=== PATIENT | female | born 1990 | race African-American/Black ===

== ENCOUNTER 2017-10-07 12:39 | Emergency (ER) | payer SELFPAY ==
[2017-10-07 13:07] LABS: Urine Blood 3+ (NEG); Urine Glucose NEGATIVE (NEG); Urine Protein 1+ (NEG); Urine Specific Gravity 1.025 (1.005-1.030)
--- NOTE | 2017-10-07 13:37 | ER ---
Nurse's Notes [facility] Name: Abby Arenas Age: 27 yrs Sex: Female : 1990 Arrival Date: 10/07/2017 Time: 12:42 Bed 19 Private MD: Diagnosis: Menstrual cycle;Abdominal and pelvic pain-cramping Presentation: 10/07 12:45 Presenting complaint: Patient states: I started my period yesterday and im bleeding la1 more than normal and the pain is worse. Pt states LMP 2 months ago but she is irr. has not taken test. Transition of care: patient was not received from another setting of care. Onset of symptoms was October 07, 2017. Care prior to arrival: None. 12:45 Method Of Arrival: Ambulatory la1 12:45 Acuity: RALF 4 la1 PRIVATE ADVISOR: 13:35 LMP 10/07/2017 em Historical: - Allergies: 12:45 PENICILLINS; la1 - PMHx: 12:45 None; la1 - Immunization history:: Adult Immunizations up to date. - Social history:: Smoking status: Patient uses tobacco products, smokes one-half pack cigarettes per day. Screenin:35 Abuse screen: Denies threats or abuse. Nutritional screening: No deficits noted. em Tuberculosis screening: No symptoms or risk factors identified. Fall Risk None identified. Assessment: 13:08 General: Appears in no apparent distress. comfortable, Behavior is calm, cooperative. em Pain: Complains of pain in suprapubic area Pain radiates to suprapubic area, right lower quadrant and left lower quadrant Pain currently is 7 out of 10 on a pain scale. Quality of pain is described as sharp, Pain began 1 day ago. Neuro: Level of Consciousness is awake, alert, obeys commands, Oriented to person, place, time, situation. Cardiovascular: Capillary refill < 3 seconds Patient's skin is warm and dry. Respiratory: Airway is patent Respiratory effort is even, unlabored, Respiratory pattern is regular, symmetrical. GI: Abdomen is round non-distended, Bowel sounds present X 4 quads. Abd is soft X 4 quads Abdomen is tender to palpation in suprapubic area, right lower quadrant and left lower quadrant. : Denies burning with urination. EENT: No signs and/or symptoms were reported regarding the EENT system. Derm: Skin is intact, Skin is pink, warm \T\ dry. Musculoskeletal: Range of motion: intact in all extremities. 13:25 Reassessment: Patient appears in no apparent distress at this time. I agree with above iw assessment by Maciel Newby LVN. Vital Signs: 12:45 BP 127 / 83; Pulse 74; Resp 16; Temp 98.3; Pulse Ox 100% on R/A; Weight 81.65 kg; la1 Height 5 ft. 5 in. (165.10 cm); 13:34 BP 118 / 76; Pulse 81; Resp 18; Pulse Ox 99% on R/A; Pain 6/10; em 12:45 Body Mass Index 29.95 (81.65 kg, 165.10 cm) la1 ED Course: 12:42 Patient arrived in ED. mr 12:43 Nadiya Flores FNP-C is PHCP. kb 12:43 Jim Arroyo MD is Attending Physician. kb 12:45 Triage completed. la1 12:46 Arm band placed on right wrist. la1 12:47 Maciel Newby LVN is Primary Nurse. em 13:35 Patient has correct armband on for positive identification. Bed in low position. Call em light in reach. Side rails up X2. Adult w/ patient. 13:35 No provider procedures requiring assistance completed. em 13:36 US Transvaginal Study (Probe) In Process Unspecified. EDMS 13:55 Patient did not have IV access during this emergency room visit. em Administered Medications: 13:41 Drug: Ibuprofen 800 mg Route: PO; em 13:54 Follow up: Response: No adverse reaction; Pain is decreased em Outcome: 13:37 Discharge ordered by MD. kb 13:55 Discharged to home ambulatory. em 13:55 Condition: good 13:55 Discharge instructions given to patient, Instructed on discharge instructions, follow up and referral plans. Demonstrated understanding of instructions, follow-up care. 13:56 Patient left the ED. em Signatures: Dispatcher [employer] EDMO Nadiya Flores FNP-C FNP-Ckb Rivera, Maria mr Newby [address] LVN em Charisse Rollins RN RN iw Carlos Franco RN RN la1
--- NOTE | 2017-10-07 13:37 | EDPHYS ---
Physician Documentation [facility] Name: Abby Arenas Age: 27 yrs Sex: Female : 1990 Arrival Date: 10/07/2017 Time: 12:42 Bed 19 Private MD: ED Physician Jim Arroyo HPI: 10/07 13:09 This 27 yrs old Black Female presents to ER via Ambulatory with complaints of Abdominal kb Cramping, Heavy menstration. 13:09 The patient has not recently seen a physician. kb 13:14 The patient presents with vaginal bleeding that is moderate, with clots. Onset: The kb symptoms/episode began/occurred yesterday. Modifying factors: The symptoms are alleviated by nothing, the symptoms are aggravated by nothing. Associated signs and symptoms: Pertinent positives: cramping, vaginal bleeding, Pertinent negatives: constipation, diarrhea, dyspareunia, dysuria, fever, hematuria, nausea, urinary frequency, vaginal discharge, vomiting. Severity of symptoms: At their worst the symptoms were mild, in the emergency department the symptoms are unchanged. The patient has not experienced similar symptoms in the past. RELIEF MASTER: 13:35 LMP 10/07/2017 em Historical: - Allergies: 12:45 PENICILLINS; la1 - PMHx: 12:45 None; la1 - Immunization history:: Adult Immunizations up to date. - Social history:: Smoking status: Patient uses tobacco products, smokes one-half pack cigarettes per day. ROS: 13:07 Constitutional: Negative for fever, chills, and weight loss, Cardiovascular: Negative kb for chest pain, palpitations, and edema, Respiratory: Negative for shortness of breath, cough, wheezing, and pleuritic chest pain, Back: Negative for injury and pain, MS/Extremity: Negative for injury and deformity, Skin: Negative for injury, rash, and discoloration, Neuro: Negative for headache, weakness, numbness, tingling, and seizure. 13:07 Abdomen/GI: Positive for abdominal cramps. 13:07 : Positive for vaginal bleeding. Exam: 13:07 Constitutional: This is a well developed, well nourished patient who is awake, alert, kb and in no acute distress. Head/Face: Normocephalic, atraumatic. Chest/axilla: Normal chest wall appearance and motion. Nontender with no deformity. No lesions are appreciated. Cardiovascular: Regular rate and rhythm with a normal S1 and S2. No gallops, murmurs, or rubs. Normal PMI, no JVD. No pulse deficits. Respiratory: Lungs have equal breath sounds bilaterally, clear to auscultation and percussion. No rales, rhonchi or wheezes noted. No increased work of breathing, no retractions or nasal flaring. Back: No spinal tenderness. No costovertebral tenderness. Full range of motion. Skin: Warm, dry with normal turgor. Normal color with no rashes, no lesions, and no evidence of cellulitis. MS/ Extremity: Pulses equal, no cyanosis. Neurovascular intact. Full, normal range of motion. Neuro: Awake and alert, GCS 15, oriented to person, place, time, and situation. Cranial nerves II-XII grossly intact. Motor strength 5/5 in all extremities. Sensory grossly intact. Cerebellar exam normal. Normal gait. 13:07 Abdomen/GI: Inspection: abdomen appears normal, Bowel sounds: normal, in all quadrants, Palpation: soft, in all quadrants, mild abdominal tenderness, in all quadrants. Vital Signs: 12:45 BP 127 / 83; Pulse 74; Resp 16; Temp 98.3; Pulse Ox 100% on R/A; Weight 81.65 kg; la1 Height 5 ft. 5 in. (165.10 cm); 13:34 BP 118 / 76; Pulse 81; Resp 18; Pulse Ox 99% on R/A; Pain 6/10; em 12:45 Body Mass Index 29.95 (81.65 kg, 165.10 cm) la1 MDM: 12:47 Patient medically screened. kb 13:07 Data reviewed: vital signs, nurses notes. Data interpreted: Pulse oximetry: on room air kb is 100 %. Interpretation: normal. 13:36 Counseling: I had a detailed discussion with the patient and/or guardian regarding: the kb historical points, exam findings, and any diagnostic results supporting the discharge/admit diagnosis, lab results, radiology results, the need for outpatient follow up, an OB/Gyne specialist, to return to the emergency department if symptoms worsen or persist or if there are any questions or concerns that arise at home. 10/07 13:03 Order name: Urine Dipstick--Ancillary (enter results); Complete Time: 13:09 ms 10/07 13:03 Order name: Urine --Ancillary (enter results); Complete Time: 13:09 ms 10/07 12:56 Order name: Urine Dipstick-Ancillary (obtain specimen); Complete Time: 13:02 kb 10/07 12:56 Order name: Urine Test (obtain specimen); Complete Time: 13:02 kb 10/07 13:06 Order name: US Transvaginal Study (Probe); Complete Time: 15:28 kb Administered Medications: 13:41 Drug: Ibuprofen 800 mg Route: PO; em 13:54 Follow up: Response: No adverse reaction; Pain is decreased em Disposition: 10/07/17 13:37 Discharged to Home. Impression: Menstrual cycle, Abdominal and pelvic pain - cramping. - Condition is Stable. - Discharge Instructions: Abnormal Uterine Bleeding, Undf-uc-Arth. - Medication Reconciliation Form, Thank You Letter, Antibiotic Education, Prescription Opioid Use, Work release form form. - Follow up: Private Physician; When: 2 - 3 days; Reason: Recheck today's complaints, Continuance of care, Re-evaluation by your physician. Follow up: Emergency Department; When: As needed; Reason: Worsening of condition. Addendum: 10/09/2017 07:24 Co-signature as Attending Physician, Jim Arroyo MD. g s Signatures: Dispatcher [employer] Nadiya Lomeli, LABORER TANBARK-C LABORER TANBARK-Maciel Porter, AIRCRAFT RESTORER AIRCRAFT RESTORER Carlos Shine, RN RN laurie1 Jim Arroyo MD MD
[2017-10-07] MEDS ORDERED: IBUPROFEN 400 MG TAB ONE (13:41)
--- NOTE | 2017-10-07 13:51 | RAD REPORT ---
EXAM DESCRIPTION: US - Transvaginal Study Probe - 10/07/2017 1:36 pm CLINICAL HISTORY: Pelvic pain. COMPARISON: None. FINDINGS: The uterus is normal in size, shape and echotexture. The uterus measures 6.5 x 4.6 x 3.5 c m. The endometrial stripe measures 6 mm, normal. Both ovaries are normal in size, shape and echotexture. The right ovary measures 4.2 x 2.1 x 2.0 cm. The left ovary measures 3.6 x 2.6 x 1.9 cm. No ovarian or parovarian lesions. No adnexal masses. Normal Doppler blood flow was demonstrated to both ovaries. IMPRESSION: Unremarkable study.
[2017-10-07 14:01] VITALS: TEMP 98.3
[2017-10-07 14:02] VITALS: BP 118/76; O2SAT 99
== END 2017-10-07 13:56 | disposition home or self-care (01) ==
LOC: ER 12:39
DX: N92.6 Irregular menstruation, unspecified (principal); F17.210 Nicotine dependence, cigarettes, uncomplicated; Z88.0 Allergy status to penicillin
CPT/HCPCS: 76830; 81003; 81025; 99283

== ENCOUNTER 2017-12-22 13:45 | Emergency (ER) | payer SELFPAY ==
[2017-12-22 19:37] LABS: Urine Bacteria LOADED /HPF (<20)
[2017-12-22 19:38] LABS: Urine Culture Reflex Order REFLEXED; Urine RBC <5 /HPF (NONE SEEN)
--- NOTE | 2017-12-22 20:38 | ER ---
Nurse's Notes [facility] Name: Abby Arenas Age: 27 yrs Sex: Female : 1990 Arrival Date: 12/22/2017 Time: 13:46 Bed External Waiting Private MD: Diagnosis: Urinary tract infection, site not specified Presentation: 12/22 14:14 Presenting complaint: Patient states: pelvic pain, burning with urination, urinary aa5 frequency x 2-3 weeks ago. Transition of care: patient was not received from another setting of care. Onset of symptoms was November 2017. Risk Assessment: Do you want to hurt yourself or someone else? Patient reports no desire to harm self or others. Initial Sepsis Screen: Does the patient meet any 2 criteria? No. Patient's initial sepsis screen is negative. Does the patient have a suspected source of infection? No. Patient's initial sepsis screen is negative. Care prior to arrival: None. 14:14 Method Of Arrival: Ambulatory aa5 14:14 Acuity: RALF 3 aa5 ASSISTANT DEAN: 19:20 LMP 12/18/2017 bb Historical: - Allergies: 14:15 PENICILLINS; aa5 - PMHx: 14:15 None; aa5 - PSHx: 14:15 None; aa5 - Immunization history:: Adult Immunizations up to date. - Social history:: Smoking status: Patient uses tobacco products, smokes one-half pack cigarettes per day. - Ebola Screening: : No symptoms or risks identified at this time. Screenin:15 Abuse screen: Denies threats or abuse. Nutritional screening: No deficits noted. bb Tuberculosis screening: No symptoms or risk factors identified. Fall Risk None identified. Assessment: 19:15 General: Appears in no apparent distress. Behavior is calm, cooperative. Pain: bb Complains of pain in pelvis. Neuro: Level of Consciousness is awake, alert, obeys commands, Oriented to person, place, time, situation. Cardiovascular: No deficits noted. Respiratory: Respiratory effort is even, unlabored. GI: No signs and/or symptoms were reported involving the gastrointestinal system. : Reports burning with urination. Derm: Skin is pink, warm \T\ dry. Musculoskeletal: Circulation, motion, and sensation intact. 21:10 Reassessment: No changes from previously documented assessment. Patient and/or family bb updated on plan of care and expected duration. Pain level reassessed. pt verbalized understanding of and agrees to plan of care discharge instructions given pt ambulated with steady gait to exit. Vital Signs: 14:15 BP 112 / 71; Pulse 73; Resp 18 S; Temp 97.9(TE); Pulse Ox 99% on R/A; Weight 72.57 kg aa5 (R); Height 5 ft. 5 in. (165.10 cm) (R); Pain 10/10; 19:41 BP 105 / 65; Pulse 68; Resp 16; Temp 98.3(O); Pulse Ox 100% on R/A; mt 21:11 BP 99 / 74; Pulse 61; Resp 16 S; Temp 96.9(O); Pulse Ox 100% on R/A; bb 14:15 Body Mass Index 26.63 (72.57 kg, 165.10 cm) aa5 ED Course: 13:46 Patient arrived in ED. sb2 14:15 Triage completed. aa5 14:15 Arm band placed on. aa5 18:53 Jp Bustos NP is PHCP. pm1 18:53 Matteo Cruz MD is Attending Physician. pm1 19:15 Patient has correct armband on for positive identification. Call light in reach. bb 20:58 Elisa Ruiz, NILTON is Primary Nurse. bb 21:12 No provider procedures requiring assistance completed. Patient did not have IV access bb during this emergency room visit. Administered Medications: No medications were administered Outcome: 20:37 Discharge ordered by MD. pm1 21:12 Discharged to home ambulatory. bb 21:12 Condition: stable 21:12 Discharge instructions given to patient, Instructed on discharge instructions, follow up and referral plans. medication usage, Demonstrated understanding of instructions, follow-up care, medications, Prescriptions given X 1. 21:13 Patient left the ED. bb Addendum: 12/25/2017 07:54 Addendum: Culture Results: Positive urine culture. No further action required. Bacteria i w sensitive to prescribed antibiotic. Signatures: Elisa Ruiz, NILTON CALLAWAY bb Charisse Rollins RN RN iw Calderon, Audri, RN RN aa5 Jp Bustos NP HEDGE TRIMMER pm1 Atiya Quintero ga Angelina Hale sb2
--- NOTE | 2017-12-22 20:38 | EDPHYS ---
Physician Documentation [facility] Name: Abby Arenas Age: 27 yrs Sex: Female : 1990 Arrival Date: 12/22/2017 Time: 13:46 Bed External Waiting Private MD: ED Physician Matteo Cruz HPI: 12/22 20:00 This 27 yrs old Black Female presents to ER via Ambulatory with complaints of Urinary pm1 Problem. 20:00 The patient presents with urinary symptoms, dysuria. Onset: The symptoms/episode pm1 began/occurred 3 week(s) ago. Modifying factors: The symptoms are alleviated by nothing, the symptoms are aggravated by urinating. Associated signs and symptoms: Pertinent negatives: diarrhea, dysuria, fever, nausea, vaginal discharge, vomiting. Severity of symptoms: in the emergency department the symptoms are actually worse. The patient has experienced similar episodes in the past, multiple times. 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 - Social history:: Smoking status: Patient uses tobacco products, smokes one-half pack cigarettes per day. - Ebola Screening: : No symptoms or risks identified at this time. ROS: 20:00 Positive for urinary frequency, burning with urination. pm1 20:00 Constitutional: Negative for fever, chills, and weight loss, Eyes: Negative for injury, pain, redness, and discharge, Cardiovascular: Negative for chest pain, palpitations, and edema, Respiratory: Negative for shortness of breath, cough, wheezing, and pleuritic chest pain, Abdomen/GI: Negative for abdominal pain, nausea, vomiting, diarrhea, and constipation, Back: Negative for injury and pain, MS/Extremity: Negative for injury and deformity, Skin: Negative for injury, rash, and discoloration, Neuro: Negative for headache, weakness, numbness, tingling, and seizure. Exam: 20:00 Constitutional: This is a well developed, well nourished patient who is awake, alert, pm1 and in no acute distress. Head/Face: Normocephalic, atraumatic. Chest/axilla: Normal chest wall appearance and motion. Nontender with no deformity. No lesions are appreciated. Cardiovascular: Regular rate and rhythm with a normal S1 and S2. No gallops, murmurs, or rubs. Normal PMI, no JVD. No pulse deficits. Respiratory: Lungs have equal breath sounds bilaterally, clear to auscultation and percussion. No rales, rhonchi or wheezes noted. No increased work of breathing, no retractions or nasal flaring. Abdomen/GI: Soft, non-tender, with normal bowel sounds. No distension or tympany. No guarding or rebound. No evidence of tenderness throughout. Back: No spinal tenderness. No costovertebral tenderness. Full range of motion. Skin: Warm, dry with normal turgor. Normal color with no rashes, no lesions, and no evidence of cellulitis. MS/ Extremity: Pulses equal, no cyanosis. Neurovascular intact. Full, normal range of motion. Vital Signs: 14:15 BP 112 / 71; Pulse 73; Resp 18 S; Temp 97.9(TE); Pulse Ox 99% on R/A; Weight 72.57 kg aa5 (R); Height 5 ft. 5 in. (165.10 cm) (R); Pain 10/10; 19:41 BP 105 / 65; Pulse 68; Resp 16; Temp 98.3(O); Pulse Ox 100% on R/A; mt 21:11 BP 99 / 74; Pulse 61; Resp 16 S; Temp 96.9(O); Pulse Ox 100% on R/A; bb 14:15 Body Mass Index 26.63 (72.57 kg, 165.10 cm) aa5 MDM: 19:05 Patient medically screened. pm1 20:21 Data reviewed: vital signs. Data interpreted: Pulse oximetry: on room air is 100 %. pm1 Interpretation: normal. Counseling: I had a detailed discussion with the patient and/or guardian regarding: the historical points, exam findings, and any diagnostic results supporting the discharge/admit diagnosis. 12/22 18:55 Order name: Urine Microscopic Only; Complete Time: 20:18 pm1 12/22 19:39 Order name: Urine Culture [facility] 12/22 18:54 Order name: Urine Dipstick-Ancillary (obtain specimen); Complete Time: 18:56 pm1 12/22 18:54 Order name: Urine Test (obtain specimen); Complete Time: 18:56 pm1 12/22 20:08 Order name: Urine Dipstick--Ancillary (enter results) ms 12/22 20:08 Order name: Urine --Ancillary (enter results) ms Administered Medications: No medications were administered Disposition: 12/22/17 20:37 Discharged to Home. Impression: Urinary tract infection, site not specified. - Condition is Stable. - Discharge Instructions: Urinary Tract Infection. - Prescriptions for Macrobid 100 mg Oral Capsule - take 1 capsule by ORAL route every 12 hours for 10 days; 20 capsule. - Work release form, Medication Reconciliation Form, Thank You Letter, Antibiotic Education form. - Follow up: Emergency Department; When: As needed; Reason: Worsening of condition. Follow up: Private Physician; When: 2 - 3 days; Reason: Recheck today's complaints, Continuance of care, Re-evaluation by your physician. - Problem is new. - Symptoms have improved. Addendum: 12/26/2017 07:08 Co-signature as Attending Physician, Matteo Cruz MD I agree with the assessment and k dr plan of care. Signatures: Dispatcher [employer] EDMS Matteo Cruz MD MD kdr Elisa Ruiz RN RN bb Sue Garcia RN RN aa5 Jp Bustos NP FINANCE ADVISOR pm1 Corrections: (The following items were deleted from the chart) 12/22 21:13 20:37 12/22/2017 20:37 Discharged to Home. Impression: Urinary tract infection, site bb not specified. Condition is Stable. Forms are Medication Reconciliation Form, Thank You Letter, Antibiotic Education, Prescription Opioid Use. Follow up: Emergency Department; When: As needed; Reason: Worsening of condition. Follow up: Private Physician; When: 2 - 3 days; Reason: Recheck today's complaints, Continuance of care, Re-evaluation by your physician. Problem is new. Symptoms have improved. pm1
[2017-12-22 21:49] LABS: Urine Blood 1+ (NEG); Urine Glucose NEGATIVE (NEG); Urine Protein 2+ (NEG); Urine Specific Gravity >1.030 (1.005-1.030)
[2017-12-22 22:22] VITALS: O2SAT 100
[2017-12-22 22:23] VITALS: BP 99/74; TEMP 96.9
== END 2017-12-22 21:13 | disposition home or self-care (01) ==
LOC: ER 13:45
DX: N39.0 Urinary tract infection, site not specified (principal); F17.210 Nicotine dependence, cigarettes, uncomplicated; Z88.0 Allergy status to penicillin
CPT/HCPCS: 81003; 81015; 81025; 87077; 87086; 87088; 87186; 99282

== ENCOUNTER 2018-01-11 19:05 | Emergency (ER) | payer SELFPAY ==
[2018-01-11] MEDS ORDERED: NA CHLORIDE 0.9% 1,000 ML ONE (20:15)
[2018-01-11 20:19] LABS: Absolute Lymphocytes (CBC) 1.4 K/uL (0.7-4.9); Absolute Monocytes 0.6 K/uL (0.1-1.3); Basophils % 0.5 % (0-1.3); Eosinophils % 0.7 % (0-4.4); Hematocrit 40.4 % (36.0-45.0); Lymphocytes % 19.9 % (15.3-44.8); MCH 26.9 pg (27.0-35.0); MCV 80.2 fL (80-100); Monocytes % 8.6 % (3.3-12.3); RBC Red Blood Cell Count 5.04 M/uL (3.86-4.86)
[2018-01-11 20:37] LABS: Albumin 3.3 g/dL (3.4-5.0); Bilirubin Direct 0.1 mg/dL (0-0.2); Bilirubin Total 0.4 mg/dL (0.2-1.0); Potassium 3.6 mmol/L (3.5-5.1); Protein, Total 7.2 g/dL (6.4-8.2)
[2018-01-11 20:49] LABS: Urine Bacteria 20-50 /HPF (<20); Urine RBC LOADED /HPF (NONE SEEN)
[2018-01-11 20:50] LABS: Urine Amorphous Sediment 1+ /HPF (NONE SEEN); Urine Culture Reflex Order NOT NEEDED; Urine Mucus 1+ /HPF (NONE SEEN)
--- NOTE | 2018-01-11 21:14 | RAD REPORT ---
EXAM DESCRIPTION: CT - Abdomen Pelvis W Contrast - 01/11/2018 9:00 pm CLINICAL HISTORY: Abdominal pain, flank pain COMPARISON: CT study November 2014. TECHNIQUE: Biphasic, helical CT imaging of the abdomen and pelvis was performed following 100 ml non -ionic IV contrast. No oral contrast was given. All CT scans are performed using dose optimization technique as appropriate and may include automated exposure control or mA/KV adjustment according to patient size. FINDINGS: No suspicious findings in the lung bases. The liver, spleen, and pancreas show no suspicious findings. Gallbladder is contracted. No biliary tr ee dilatation. Gallstones can be occult on CT imaging. Symmetric renal function is seen with no hydronephrosis or suspicious renal mass. No pyelonephritis o r acute renal parenchymal process. No urinary bladder abnormality. Adrenal glands are normal. Uterus and ovaries are normal for age. No fallopian tube or adnexal abnormality. No dilated bowel loops or bowel wall thickening. Appendix is normal. No free air or pneumatosis. No f ocal inflammatory stranding. Trace free fluid in the cul-de-sac is within physiologic limits. No her ron, mass or bulky lymphadenopathy. No suspicious bony findings. IMPRESSION: Contrast enhanced CT abdomen and pelvis showing no significant or suspicious finding.
--- NOTE | 2018-01-11 21:51 | EDPHYS ---
Physician Documentation [facility] Name: Abby Arenas Age: 27 yrs Sex: Female : 1990 Arrival Date: 01/11/2018 Time: 19:10 Bed 26 Private MD: ED Physician Toy Martinez HPI: 01/11 22:00 This 27 yrs old Black Female presents to ER via Ambulatory with complaints of Back pm1 Pain, Fever. 22:00 The patient presents with pain that is acute, with no known mechanism of injury. The pm1 symptoms are located in the low back. Onset: The symptoms/episode began/occurred yesterday. Location: abdomen. Associated signs and symptoms: Pertinent positives: fever, Pertinent negatives: chest pain, dysuria, headache, numbness, tingling. The problem was sustained from unknown cause. Modifying factors: The patient symptoms are alleviated by nothing, the patient symptoms are aggravated by nothing. Severity of symptoms: in the emergency department the symptoms are unchanged. The patient has not experienced similar symptoms in the past. 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 - Social history:: Smoking status: Patient uses tobacco products, smokes one-half pack cigarettes per day, States that she quit 2 weeks ago. - Ebola Screening: : Patient denies travel to an Ebola-affected area in the 21 days before illness onset. ROS: 22:00 Constitutional: Negative for fever, chills, and weight loss, Eyes: Negative for injury, pm1 pain, redness, and discharge, ENT: Negative for injury, pain, and discharge, Neck: Negative for injury, pain, and swelling, Cardiovascular: Negative for chest pain, palpitations, and edema, Respiratory: Negative for shortness of breath, cough, wheezing, and pleuritic chest pain. 22:00 : Negative for injury, bleeding, discharge, and swelling, MS/Extremity: Negative for injury and deformity, Skin: Negative for injury, rash, and discoloration, Neuro: Negative for headache, weakness, numbness, tingling, and seizure. 22:00 Abdomen/GI: Positive for abdominal pain, Negative for nausea, vomiting, and diarrhea. 22:00 Back: Positive for flank pain, bilaterally. Exam: 22:00 Constitutional: This is a well developed, well nourished patient who is awake, alert, pm1 and in no acute distress. Head/Face: Normocephalic, atraumatic. Neck: Trachea midline, no thyromegaly or masses palpated, and no cervical lymphadenopathy. Supple, full range of motion without nuchal rigidity, or vertebral point tenderness. No Meningismus. Chest/axilla: Normal chest wall appearance and motion. Nontender with no deformity. No lesions are appreciated. Cardiovascular: Regular rate and rhythm with a normal S1 and S2. No gallops, murmurs, or rubs. Normal PMI, no JVD. No pulse deficits. Respiratory: Lungs have equal breath sounds bilaterally, clear to auscultation and percussion. No rales, rhonchi or wheezes noted. No increased work of breathing, no retractions or nasal flaring. Abdomen/GI: Soft, non-tender, with normal bowel sounds. No distension or tympany. No guarding or rebound. No evidence of tenderness throughout. Back: No spinal tenderness. No costovertebral tenderness. Full range of motion. Skin: Warm, dry with normal turgor. Normal color with no rashes, no lesions, and no evidence of cellulitis. MS/ Extremity: Pulses equal, no cyanosis. Neurovascular intact. Full, normal range of motion. 22:00 Neuro: Orientation: is normal, Mentation: is normal, Sensation: is normal, no obvious gross deficits, Gait: is steady, at a normal pace, without difficulty. Vital Signs: 19:16 BP 117 / 68; Pulse 86; Resp 18; Temp 97.8; Pulse Ox 98% on R/A; Weight 74.84 kg (R); aj1 Height 5 ft. 5 in. (165.10 cm) (R); Pain 8/10; 21:43 BP 115 / 72; Pulse 83; Resp 16; Pulse Ox 100% on R/A; mb3 19:16 Body Mass Index 27.46 (74.84 kg, 165.10 cm) aj1 MDM: 19:21 Patient medically screened. pm1 21:49 Data reviewed: vital signs. Data interpreted: Pulse oximetry: on room air is 100 %. pm1 Interpretation: normal. Counseling: I had a detailed discussion with the patient and/or guardian regarding: the historical points, exam findings, and any diagnostic results supporting the discharge/admit diagnosis, lab results, radiology results, the need for outpatient follow up, to return to the emergency department if symptoms worsen or persist or if there are any questions or concerns that arise at home. 01/11 19:44 Order name: Basic Metabolic Panel; Complete Time: 20:48 pm1 01/11 19:44 Order name: CBC with Diff; Complete Time: 20:48 pm1 01/11 19:44 Order name: Hepatic Function; Complete Time: 20:48 pm1 01/11 19:44 Order name: Lipase; Complete Time: 20:48 pm1 01/11 19:44 Order name: Urine Microscopic Only; Complete Time: 21:18 pm1 01/11 20:36 Order name: Urine Dipstick--Ancillary (enter results) eb 01/11 19:44 Order name: IV Saline Lock; Complete Time: 21:56 pm1 01/11 19:44 Order name: Labs collected and sent; Complete Time: 21:56 pm1 01/11 19:44 Order name: CT Abd/Pelvis - W/Contrast: IV contrast only; Complete Time: 21:18 pm1 01/11 21:19 Order name: Urine Culture pm1 01/11 19:44 Order name: Urine Dipstick-Ancillary (obtain specimen); Complete Time: 21:56 pm1 Administered Medications: 20:15 Drug: NS 0.9% 1000 ml Route: IV; Rate: 1000 ml; Site: left antecubital; mb3 22:15 Follow up: Response: No adverse reaction; IV Status: Completed infusion; IV Intake: mb3 1000ml 21:56 Drug: TORadol 30 mg Route: IVP; Site: left forearm; mb3 22:15 Follow up: Response: No adverse reaction mb3 Disposition: 22:27 Co-signature as Attending Physician, Toy Martinez MD. pkl Disposition: 01/11/18 21:50 Discharged to Home. Impression: Unspecified abdominal pain, Urinary tract infection, site not specified. - Condition is Stable. - Discharge Instructions: Abdominal Pain, Adult, Urinary Tract Infection. - Prescriptions for Bactrim DS 800- 160 mg Oral Tablet - take 1 tablet by ORAL route every 12 hours for 10 days; 20 tablet. - Medication Reconciliation Form, Thank You Letter, Antibiotic Education, Work release form form. - Follow up: Emergency Department; When: As needed; Reason: Worsening of condition. Follow up: Private Physician; When: 2 - 3 days; Reason: Recheck today's complaints, Continuance of care, Re-evaluation by your physician. - Problem is new. - Symptoms have improved. Signatures: Dispatcher [employer] EDCharlotte Tee RN RN aj1 Toy Martinez MD MD pkl Jp Bustos, KD FLOOR CARE TECHNICIAN pm1 John Taylor, RN RN mb3 Corrections: (The following items were deleted from the chart) 22:16 21:50 01/11/2018 21:50 Discharged to Home. Impression: Unspecified abdominal pain; mb3 Urinary tract infection, site not specified. Condition is Stable. Forms are Medication Reconciliation Form, Thank You Letter, Antibiotic Education, Prescription Opioid Use. Follow up: Emergency Department; When: As needed; Reason: Worsening of condition. Follow up: Private Physician; When: 2 - 3 days; Reason: Recheck today's complaints, Continuance of care, Re-evaluation by your physician. Problem is new. Symptoms have improved. pm1
--- NOTE | 2018-01-11 21:51 | ER ---
Nurse's Notes [facility] Name: Abby Arenas Age: 27 yrs Sex: Female : 1990 Arrival Date: 01/11/2018 Time: 19:10 Bed 26 Private MD: Diagnosis: Unspecified abdominal pain;Urinary tract infection, site not specified Presentation: 01/11 19:11 Presenting complaint: Patient states: "I'm in a lot of pain, it goes from my back into aj1 my stomach and then into my leg. It kept me up last night" Reports a fever last of 100.8, denies running fever today. Denies N/V/D. Denies dysuria, urinary frequency, urgency, discharge. Transition of care: patient was not received from another setting of care. Onset of symptoms was December 11, 2017. Risk Assessment: Do you want to hurt yourself or someone else? Patient reports no desire to harm self or others. Initial Sepsis Screen: Does the patient meet any 2 criteria? No. Patient's initial sepsis screen is negative. Does the patient have a suspected source of infection? No. Patient's initial sepsis screen is negative. Care prior to arrival: None. 19:11 Method Of Arrival: Ambulatory aj1 19:11 Acuity: RALF 3 aj1 Triage Assessment: 19:16 General: Appears in no apparent distress. comfortable, Behavior is calm, cooperative, aj1 appropriate for age. Pain: Complains of pain in low back area and umbilical area Pain does not radiate. Pain currently is 8 out of 10 on a pain scale. Quality of pain is described as "twisting" Pain began 1 day ago. Neuro: Level of Consciousness is awake, alert, obeys commands. Cardiovascular: Patient's skin is warm and dry. Respiratory: Airway is patent Respiratory effort is even, unlabored, Respiratory pattern is regular, symmetrical. GI: Abdomen is non-distended, Patient currently denies diarrhea, nausea, vomiting. : Denies burning with urination, discharge, urinary frequency, urgency. Derm: Skin is pink, warm \\T\\ dry. normal. Musculoskeletal: Circulation, motion, and sensation intact. Range of motion: intact in all extremities. 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 - Social history:: Smoking status: Patient uses tobacco products, smokes one-half pack cigarettes per day, States that she quit 2 weeks ago. - Ebola Screening: : Patient denies travel to an Ebola-affected area in the 21 days before illness onset. Screenin:19 Abuse screen: Denies threats or abuse. Nutritional screening: No deficits noted. mb3 Tuberculosis screening: No symptoms or risk factors identified. Fall Risk None identified. Assessment: 20:17 General: Appears in no apparent distress. comfortable, Behavior is calm, cooperative, mb3 appropriate for age. Pain: Complains of pain in left low back and right low back. Neuro: Level of Consciousness is awake, alert, obeys commands, Oriented to person, place, time, situation, Appropriate for age. Cardiovascular: No deficits noted. Respiratory: No deficits noted. Airway is patent Respiratory effort is even, unlabored, Respiratory pattern is regular, symmetrical. GI: No deficits noted. No signs and/or symptoms were reported involving the gastrointestinal system. Abdomen is flat, Bowel sounds present X 4 quads. Abd is soft and non tender. : Reports pain flank(s). Musculoskeletal: No deficits noted. No signs and/or symptoms reported regarding the musculoskeletal system. 21:47 Reassessment: Patient and/or family updated on plan of care and expected duration. Pain mb3 level reassessed. Patient is alert, oriented x 3, equal unlabored respirations, skin warm/dry/pink. Patient states symptoms have improved. Vital Signs: 19:16 BP 117 / 68; Pulse 86; Resp 18; Temp 97.8; Pulse Ox 98% on R/A; Weight 74.84 kg (R); aj1 Height 5 ft. 5 in. (165.10 cm) (R); Pain 8/10; 21:43 BP 115 / 72; Pulse 83; Resp 16; Pulse Ox 100% on R/A; mb3 19:16 Body Mass Index 27.46 (74.84 kg, 165.10 cm) aj1 ED Course: 19:10 Patient arrived in ED. es 19:16 Triage completed. aj1 19:16 Arm band placed on Patient placed in an exam room. aj1 19:19 Jp Bustos NP is PHCP. pm1 19:19 Toy Martinez MD is Attending Physician. pm1 19:20 John Taylor, RN is Primary Nurse. mb3 19:47 Radiology exam delayed due to lab results not completed at this time. test kc3 not completed at this time. 20:05 Missed attempt(s): 20 gauge Bleeding controlled, band aid applied, catheter tip intact. mb3 20:10 Inserted saline lock: 22 gauge in left antecubital area, using aseptic technique. Blood mb3 collected. 21:01 CT Abd/Pelvis - W/Contrast: IV contrast only In Process Unspecified. EDMS 21:56 Urine Culture Sent. mb3 22:16 Patient has correct armband on for positive identification. mb3 22:16 No provider procedures requiring assistance completed. IV discontinued, intact, mb3 bleeding controlled, No redness/swelling at site. Pressure dressing applied. Administered Medications: 20:15 Drug: NS 0.9% 1000 ml Route: IV; Rate: 1000 ml; Site: left antecubital; mb3 22:15 Follow up: Response: No adverse reaction; IV Status: Completed infusion; IV Intake: mb3 1000ml 21:56 Drug: TORadol 30 mg Route: IVP; Site: left forearm; mb3 22:15 Follow up: Response: No adverse reaction mb3 Intake: 22:15 IV: 1000ml; Total: 1000ml. mb3 Outcome: 21:50 Discharge ordered by MD. pm1 22:15 Discharged to home ambulatory. mb3 22:15 Condition: stable 22:15 Discharge instructions given to patient, Instructed on discharge instructions, follow up and referral plans. medication usage, Demonstrated understanding of instructions, follow-up care, medications, Prescriptions given X 1. 22:16 Patient left the ED. mb3 Signatures: Dispatcher [employer] EDCharlotte Tee RN RN aj1 Nancy Vazquez Patrick, NP DOCUMENT MANAGEMENT CONSULTANT pm1 Shaye Hickey kc3 John Taylor, RN RN mb3
[2018-01-11] MEDS ORDERED: KETOROLAC 30 MG/ML INJ ONE (21:55)
[2018-01-11 21:57] LABS: Urine Blood 3+ (NEG); Urine Glucose TRACE (NEG); Urine Protein 3+ (NEG)
[2018-01-11 22:20] VITALS: TEMP 97.8
[2018-01-11 22:21] VITALS: BP 115/72; O2SAT 100
== END 2018-01-11 22:16 | disposition home or self-care (01) ==
LOC: ER 19:05
DX: N39.0 Urinary tract infection, site not specified (principal); F17.210 Nicotine dependence, cigarettes, uncomplicated; Z88.0 Allergy status to penicillin
CPT/HCPCS: 36415; 74177; 80048; 80076; 81003; 81015; 83690; 85025; 96361; 96374; 99284; J7030; Q9967

== ENCOUNTER 2018-02-05 21:06 | Emergency (ER) | payer SELFPAY ==
--- NOTE | 2018-02-05 21:29 | EDPHYS ---
Physician Documentation [facility] Name: Abby Arenas Age: 27 yrs Sex: Female : 1990 Arrival Date: 02/05/2018 Time: 21:06 Bed 13 Private MD: ED Physician Td Vasques HPI: 02/05 21:24 This 27 yrs old Black Female presents to ER via Ambulatory with complaints of Pain With ps1 Urination. 21:24 pain with urination for 2 weeks. Additionally has suprapubic pain. History of UTI's in ps1 past that feel the same. usually takes Macrobid and has good resolution. No fevers. . 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 - Social history:: Smoking status: Patient/guardian denies using tobacco. - Ebola Screening: : No symptoms or risks identified at this time. ROS: 21:24 Constitutional: Negative for fever, chills, and weight loss, Eyes: Negative for injury, ps1 pain, redness, and discharge, Cardiovascular: Negative for chest pain, palpitations, and edema, Respiratory: Negative for shortness of breath, cough, wheezing, and pleuritic chest pain, Abdomen/GI: Negative for abdominal pain, nausea, vomiting, diarrhea, and constipation. 21:24 : Positive for urinary symptoms, urinary frequency, burning with urination, foul smelling urine. Exam: 21:24 Constitutional: This is a well developed, well nourished patient who is awake, alert, ps1 and in no acute distress. Head/Face: Normocephalic, atraumatic. Eyes: Pupils equal round and reactive to light, extra-ocular motions intact. Lids and lashes normal. Conjunctiva and sclera are non-icteric and not injected. Cardiovascular: Regular rate and rhythm. No gallops, murmurs, or rubs. Normal PMI, no JVD. No pulse deficits. Respiratory: Lungs have equal breath sounds bilaterally, clear to auscultation and percussion. No rales, rhonchi or wheezes noted. No increased work of breathing, no retractions or nasal flaring. Abdomen/GI: Soft, non-tender, with normal bowel sounds. No distension or tympany. No guarding or rebound. No evidence of tenderness throughout. MS/ Extremity: Pulses equal, no cyanosis. Neurovascular intact. Full, normal range of motion. Neuro: Awake and alert, GCS 15, oriented to person, place, time, and situation. Cranial nerves II-XII grossly intact. Sensory grossly intact. Vital Signs: 21:14 BP 111 / 69; Pulse 93; Resp 16; Temp 98.6; Pulse Ox 100% on R/A; Weight 81.65 kg; aa1 Height 5 ft. 5 in. (165.10 cm); Pain 10/10; 21:14 Body Mass Index 29.95 (81.65 kg, 165.10 cm) aa1 MDM: 21:24 Data reviewed: vital signs, nurses notes, lab test result(s). Counseling: I had a ps1 detailed discussion with the patient and/or guardian regarding: the historical points, exam findings, and any diagnostic results supporting the discharge/admit diagnosis, lab results, the need for outpatient follow up. ED course: UA positive. Culture sent. Home with pyridium and macrobid. Preg negative. . 21:28 Patient medically screened. [facility] 02/05 21:21 Order name: Urine Culture [facility] 02/05 21:28 Order name: Urine Dipstick--Ancillary (enter results) rg2 02/05 21:21 Order name: Urine Dipstick-Ancillary (obtain specimen); Complete Time: 21:29 [facility] 02/05 21:28 Order name: Urine --Ancillary (enter results) rg2 Administered Medications: No medications were administered Disposition: 02/05/18 21:28 Discharged to Home. Impression: Acute cystitis. - Condition is Stable. - Discharge Instructions: Urinary Tract Infection, Adult. - Prescriptions for Pyridium 200 mg Oral Tablet - take 1 tablet by ORAL route every 8 hours for 3 days; 9 tablet. Macrobid 100 mg Oral Capsule - take 1 capsule by ORAL route every 12 hours for 7 days; 14 capsule. - Medication Reconciliation Form, Thank You Letter, Antibiotic Education, Prescription Opioid Use form. - Follow up: Private Physician; When: As needed; Reason: Recheck today's complaints, Continuance of care, Re-evaluation by your physician. Follow up: Emergency Department; When: As needed; Reason: Fever > 102 F, Worsening of condition. - Problem is new. - Symptoms are unchanged. Signatures: Dispatcher [employer] EDEdilma Anne, RN RN Ana Escoto RN Td Wade MD MD ps1 Corrections: (The following items were deleted from the chart) 21:32 21:28 02/05/2018 21:28 Discharged to Home. Impression: Acute cystitis. Condition is aj Stable. Forms are Medication Reconciliation Form, Thank You Letter, Antibiotic Education, Prescription Opioid Use. Follow up: Private Physician; When: As needed; Reason: Recheck today's complaints, Continuance of care, Re-evaluation by your physician. Follow up: Emergency Department; When: As needed; Reason: Fever > 102 F, Worsening of condition. Problem is new. Symptoms are unchanged. ps1
--- NOTE | 2018-02-05 21:29 | ER ---
Nurse's Notes [facility] Name: Abby Arenas Age: 27 yrs Sex: Female : 1990 Arrival Date: 02/05/2018 Time: 21:06 Bed 13 Private MD: Diagnosis: Acute cystitis Presentation: 02/05 21:13 Presenting complaint: Patient states: pain with urination x 1 week. Transition of care: aa1 patient was not received from another setting of care. Onset of symptoms was January 22, 2018. Risk Assessment: Do you want to hurt yourself or someone else? Patient reports no desire to harm self or others. Initial Sepsis Screen: Does the patient meet any 2 criteria? No. Patient's initial sepsis screen is negative. Does the patient have a suspected source of infection? Yes: Dysuria/Frequency/Urgency/UTI. Care prior to arrival: None. 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 - Social history:: Smoking status: Patient/guardian denies using tobacco. - Ebola Screening: : No symptoms or risks identified at this time. Screenin:26 Abuse screen: Denies threats or abuse. Denies injuries from another. Nutritional aj screening: No deficits noted. Tuberculosis screening: No symptoms or risk factors identified. Fall Risk None identified. Assessment: 21:26 General: Appears in no apparent distress. comfortable, Behavior is calm, cooperative. aj Pain: Denies pain. Neuro: Level of Consciousness is awake, alert, obeys commands, Oriented to person, place, time, situation, Appropriate for age. Respiratory: Airway is patent Respiratory effort is even, unlabored, Respiratory pattern is regular, symmetrical. : Reports burning with urination. Derm: Skin is intact, is healthy with good turgor, Skin is pink, warm \T\ dry. normal. Vital Signs: 21:14 BP 111 / 69; Pulse 93; Resp 16; Temp 98.6; Pulse Ox 100% on R/A; Weight 81.65 kg; aa1 Height 5 ft. 5 in. (165.10 cm); Pain 10/10; 21:14 Body Mass Index 29.95 (81.65 kg, 165.10 cm) aa1 ED Course: 21:06 Patient arrived in ED. ds1 21:14 Triage completed. aa1 21:14 Arm band placed on right wrist. Patient placed in an exam room, on a stretcher. aa1 21:19 Td Vasques MD is Attending Physician. ps1 21:19 Ana Crapenter RN is Primary Nurse. aj 21:26 Patient has correct armband on for positive identification. aj 21:26 No provider procedures requiring assistance completed. Urine collected: clean catch aj specimen, cloudy. Patient did not have IV access during this emergency room visit. Administered Medications: No medications were administered Outcome: 21:26 Discharged to home ambulatory. aj 21:26 Condition: good 21:26 Discharge instructions given to patient, Instructed on discharge instructions, follow up and referral plans. medication usage, Demonstrated understanding of instructions, follow-up care, medications, Prescriptions given X 1. 21:28 Discharge ordered by . ps1 21:32 Patient left the ED. aj Addendum: 02/08/2018 07:38 Addendum: Culture Results: Positive urine culture. No further action required. Bacteria s s sensitive to prescribed antibiotic. Signatures: Edilma Baker, NILTON CALLAWAY aa Ana Carpenter RN RN aj Sanford, Demi ds1 Alejandra Whipple RN RN Td Vasuqes MD MD ps1
[2018-02-05 21:41] LABS: Urine Blood TRACE (NEG); Urine Glucose NEGATIVE (NEG); Urine Protein 2+ (NEG); Urine Specific Gravity 1.025 (1.005-1.030); Urine pH 6.5 (5.0-7.0)
[2018-02-05 21:55] VITALS: BP 111/69; TEMP 98.6; O2SAT 100
== END 2018-02-05 21:32 | disposition home or self-care (01) ==
LOC: ER 21:06
DX: N30.00 Acute cystitis without hematuria (principal); Z88.0 Allergy status to penicillin
CPT/HCPCS: 81003; 81025; 87077; 87086; 87088; 87186; 99283

== ENCOUNTER 2019-01-18 20:03 | Emergency (ER) | payer SELFPAY ==
--- OUTSIDE RECORDS SUMMARY | 2019-01-18 20:05 | XMS REPORT ---
:1990 [facility] Address [address] [place] [address] Care Team Providers Name Role Phone Unavailable Unavailable Unavailable Payers Payer Name Policy Type Policy Number Effective Date Expiration Date Problems This patient has no known problems. Allergies, Adverse Reactions, Alerts Allergy Allergy Status Severity Reaction(s) Onset Inactive Treating Comments Name Type Date Date Clinician No Known DA Active U 2018-07 Allergies -02 00:00:0 0 Medications This patient has no known medications.
[2019-01-18 20:48] LABS: Urine Blood NEGATIVE (NEG); Urine Glucose NEGATIVE (NEG); Urine Protein 1+ (NEG); Urine pH 6.5 (5.0-7.0)
[2019-01-18 21:00] LABS: Urine Bacteria 20-50 /HPF (<20); Urine Culture Reflex Order REFLEXED; Urine RBC <5 /HPF (NONE SEEN)
--- NOTE | 2019-01-18 21:03 | EDPHYS ---
Physician Documentation [facility] Name: Abby Arenas Age: 28 yrs Sex: Female : 1990 Arrival Date: 01/18/2019 Time: 20:07 Bed 12 Private MD: ED Physician Jim Arroyo HPI: 01/18 20:42 This 28 yrs old Black Female presents to ER via Ambulatory with complaints of Pain With snw Urination, Abdominal Pain. 20:42 Onset: The symptoms/episode began/occurred gradually, 3 week(s) ago, and became snw persistent. Associated signs and symptoms: The patient has no apparent associated signs or symptoms. The patient has experienced a previous episode. The patient has not recently seen a physician. Historical: - Allergies: 20:11 PENICILLINS; la1 - PMHx: 20:11 None; la1 - Immunization history:: Adult Immunizations up to date. - Social history:: Smoking status: Patient/guardian denies using tobacco. - Ebola Screening: : No symptoms or risks identified at this time. ROS: 20:42 Constitutional: Negative for fever, chills, and weight loss, Eyes: Negative for injury, snw pain, redness, and discharge, ENT: Negative for injury, pain, and discharge, Neck: Negative for injury, pain, and swelling, Cardiovascular: Negative for chest pain, palpitations, and edema, Respiratory: Negative for shortness of breath, cough, wheezing, and pleuritic chest pain, Back: Negative for injury and pain, MS/Extremity: Negative for injury and deformity, Skin: Negative for injury, rash, and discoloration, Neuro: Negative for headache, weakness, numbness, tingling, and seizure. 20:42 Abdomen/GI: Positive for abdominal pain, of the left lower quadrant. 20:42 : Positive for urinary symptoms, urinary frequency, small amounts, burning with urination. Exam: 20:40 Constitutional: This is a well developed, well nourished patient who is awake, alert, snw and in no acute distress. Head/Face: Normocephalic, atraumatic. Eyes: Pupils equal round and reactive to light, extra-ocular motions intact. Lids and lashes normal. Conjunctiva and sclera are non-icteric and not injected. Cornea within normal limits. Periorbital areas with no swelling, redness, or edema. ENT: Nares patent. No nasal discharge, no septal abnormalities noted. Tympanic membranes are normal and external auditory canals are clear. Oropharynx with no redness, swelling, or masses, exudates, or evidence of obstruction, uvula midline. Mucous membranes moist. Neck: Trachea midline, no thyromegaly or masses palpated, and no cervical lymphadenopathy. Supple, full range of motion without nuchal rigidity, or vertebral point tenderness. No Meningismus. Chest/axilla: Normal chest wall appearance and motion. Nontender with no deformity. No lesions are appreciated. Cardiovascular: Regular rate and rhythm with a normal S1 and S2. No gallops, murmurs, or rubs. Normal PMI, no JVD. No pulse deficits. Respiratory: Lungs have equal breath sounds bilaterally, clear to auscultation and percussion. No rales, rhonchi or wheezes noted. No increased work of breathing, no retractions or nasal flaring. Back: No spinal tenderness. No costovertebral tenderness. Full range of motion. Skin: Warm, dry with normal turgor. Normal color with no rashes, no lesions, and no evidence of cellulitis. MS/ Extremity: Pulses equal, no cyanosis. Neurovascular intact. Full, normal range of motion. Neuro: Awake and alert, GCS 15, oriented to person, place, time, and situation. Cranial nerves II-XII grossly intact. Motor strength 5/5 in all extremities. Sensory grossly intact. Cerebellar exam normal. Normal gait. Psych: Awake, alert, with orientation to person, place and time. Behavior, mood, and affect are within normal limits. 20:40 Abdomen/GI: Inspection: abdomen appears normal, Bowel sounds: normal, in all quadrants, Palpation: abdomen is soft and non-tender, in the left lower quadrant with some mild tenderness. Vital Signs: 20:11 BP 120 / 70; Pulse 88; Resp 16; Temp 97.6; Pulse Ox 98% on R/A; Weight 74.84 kg; Height la1 5 ft. 5 in. (165.10 cm); 20:11 Body Mass Index 27.46 (74.84 kg, 165.10 cm) la1 MDM: 20:16 Patient medically screened. snw 21:03 Data reviewed: vital signs, nurses notes. Data interpreted: Pulse oximetry: on room air snw is 98 %. Interpretation: normal. Counseling: I had a detailed discussion with the patient and/or guardian regarding: the historical points, exam findings, and any diagnostic results supporting the discharge/admit diagnosis, lab results, the need for outpatient follow up, to return to the emergency department if symptoms worsen or persist or if there are any questions or concerns that arise at home. Special discussion: Based on the patient's Hx, exam, and Dx evaluation, there is no indication for emergent surgery or inpatient Tx. It is understood by the patient/guardian that if the Sx's persist or worsen they need to return immediately for re-evaluation. Based on the history and exam findings, there is no indication for further emergent testing or inpatient evaluation. I discussed with the patient/guardian the need to see the primary care provider for further evaluation of the symptoms. 01/18 20:23 Order name: Urine Dipstick--Ancillary (enter results); Complete Time: 20:48 mw2 01/18 20:23 Order name: Urine --Ancillary (enter results); Complete Time: 20:48 mw2 01/18 20:24 Order name: Urine Microscopic Only; Complete Time: 21:01 mw2 01/18 21:01 Order name: Urine Culture EDMS Administered Medications: 21:10 Drug: Macrobid 100 mg Route: PO; snw Disposition: 21:23 Co-signature as Attending Physician, Jim Arroyo MD. Disposition: 01/18/19 21:02 Discharged to Home. Impression: Urinary tract infection, site not specified. - Condition is Stable. - Discharge Instructions: Urinary Tract Infection, Adult, Rehydration, Adult. - Prescriptions for Macrobid 100 mg Oral Capsule - take 1 capsule by ORAL route every 12 hours for 10 days; 20 capsule. - Work release form, Medication Reconciliation Form, Thank You Letter, Antibiotic Education, Prescription Opioid Use form. - Follow up: Private Physician; When: 2 - 3 days; Reason: Recheck today's complaints, Continuance of care, Re-evaluation by your physician. Follow up: Emergency Department; When: As needed; Reason: Worsening of condition. Signatures: Dispatcher [employer] EDNY Sabrina Paige, PRACHI-C NET MAKING SUPERVISOR-Csnw Carlos Franco RN RN Jim Packer MD MD gs Corrections: (The following items were deleted from the chart) 21:12 21:02 01/18/2019 21:02 Discharged to Home. Impression: Urinary tract infection, site snw not specified. Condition is Stable. Forms are Medication Reconciliation Form, Thank You Letter, Antibiotic Education, Prescription Opioid Use. Follow up: Private Physician; When: 2 - 3 days; Reason: Recheck today's complaints, Continuance of care, Re-evaluation by your physician. Follow up: Emergency Department; When: As needed; Reason: Worsening of condition. snw
--- NOTE | 2019-01-18 21:03 | ER ---
Nurse's Notes [facility] Name: Abby Arenas Age: 28 yrs Sex: Female : 1990 Arrival Date: 01/18/2019 Time: 20:07 Bed 12 Private MD: Diagnosis: Urinary tract infection, site not specified Presentation: 01/18 20:10 Presenting complaint: Patient states: Urinary burning and suprapubic pain for 3 weeks. la1 Transition of care: patient was not received from another setting of care. Onset of symptoms was January 18, 2019. Risk Assessment: Do you want to hurt yourself or someone else? Patient reports no desire to harm self or others. Initial Sepsis Screen: Does the patient meet any 2 criteria? No. Patient's initial sepsis screen is negative. Does the patient have a suspected source of infection? No. Patient's initial sepsis screen is negative. Care prior to arrival: None. 20:10 Method Of Arrival: Ambulatory la1 20:10 Acuity: RALF 4 la1 Historical: - Allergies: 20:11 PENICILLINS; la1 - PMHx: 20:11 None; la1 - Immunization history:: Adult Immunizations up to date. - Social history:: Smoking status: Patient/guardian denies using tobacco. - Ebola Screening: : No symptoms or risks identified at this time. Screenin:20 Abuse screen: Denies threats or abuse. Denies injuries from another. Nutritional dm5 screening: No deficits noted. Tuberculosis screening: No symptoms or risk factors identified. Fall Risk None identified. Assessment: 20:20 General: Appears in no apparent distress. well groomed, Behavior is calm, cooperative. dm5 Pain: Complains of pain in suprapubic area Pain began approximately 3 weeks Is continuous. Neuro: Level of Consciousness is awake, alert, obeys commands, Oriented to person, place, time, situation. Cardiovascular: No deficits noted. 20:20 GI: Bowel sounds present X 4 quads. Abd is soft and non tender. dm5 Vital Signs: 20:11 BP 120 / 70; Pulse 88; Resp 16; Temp 97.6; Pulse Ox 98% on R/A; Weight 74.84 kg; Height la1 5 ft. 5 in. (165.10 cm); 20:11 Body Mass Index 27.46 (74.84 kg, 165.10 cm) la1 ED Course: 20:07 Patient arrived in ED. do 20:11 Triage completed. la1 20:11 Arm band placed on left wrist. la1 20:14 Sabrina Paige FNP-C is [facility]. snw 20:14 Jim Arroyo MD is Attending Physician. snw 20:20 Patient has correct armband on for positive identification. dm5 20:20 No provider procedures requiring assistance completed. Patient did not have IV access dm5 during this emergency room visit. 20:23 Maria T Washburn, RN is Primary Nurse. dm5 Administered Medications: 21:10 Drug: Macrobid 100 mg Route: PO; snw Outcome: 20:20 Discharged to home dm5 20:20 Condition: good 20:20 Discharge instructions given to patient, family, Instructed on discharge instructions, follow up and referral plans. Demonstrated understanding of instructions, follow-up care, medications. 21:02 Discharge ordered by . snw 21:12 Patient left the ED. snw Signatures: Marai T Washburn, RN RN dm5 Sabrina Paige FNP-C FNP-Csnw Carlos Franco RN RN la1 Bebe Hutson do
[2019-01-18 21:19] VITALS: BP 120/70; TEMP 97.6; O2SAT 98
[2019-01-18] MEDS ORDERED: NITROFURAN MACRO 100 MG CAP PO ONE (21:25)
== END 2019-01-18 21:12 | disposition home or self-care (01) ==
LOC: ER 20:03
DX: N39.0 Urinary tract infection, site not specified (principal); Z88.0 Allergy status to penicillin
CPT/HCPCS: 81003; 81015; 81025; 87077; 87086; 87088; 87186; 99283

== ENCOUNTER 2019-02-21 18:33 | Emergency (ER) | payer SELFPAY ==
--- OUTSIDE RECORDS SUMMARY | 2019-02-21 18:36 | XMS REPORT ---
:1990 [facility] Address [address] [place] [address] [address] [place] [address] Care Team Providers Name Role Phone Unavailable [...]
--- NOTE | 2019-02-21 19:23 | EDPHYS ---
Physician Documentation [facility] Name: Abby Arenas Age: 28 yrs Sex: Female : 1990 Arrival Date: 02/21/2019 Time: 18:37 Bed DIS3 Private MD: ED Physician Lio Sterling HPI: 02/21 19:19 This 28 yrs old Black Female presents to ER via Ambulatory with complaints of Cough. kb 19:19 The patient or guardian reports cough, that is intermittent, described as mild, with no kb sputum. Onset: The symptoms/episode began/occurred 3 day(s) ago. Severity of symptoms: At their worst the symptoms were mild, moderate, in the emergency department the symptoms are unchanged. Modifying factors: The symptoms are alleviated by nothing, the symptoms are aggravated by nothing. Associated signs and symptoms: Pertinent positives: chest pain, sore throat, Pertinent negatives: diarrhea, ear ache, fever, nausea, rhinorrhea, vomiting. The patient has not experienced similar symptoms in the past. The patient has not recently seen a physician. Pt reports cough, chest pain, and sore throat for 3 days. Historical: - Allergies: 18:44 PENICILLINS; la1 - PMHx: 18:44 None; la1 - Immunization history:: Adult Immunizations up to date. - Social history:: Smoking status: Patient uses tobacco products, smokes one-half pack cigarettes per day. - Ebola Screening: : No symptoms or risks identified at this time. ROS: 19:18 Constitutional: Negative for fever, chills, and weight loss, Neck: Negative for injury, kb pain, and swelling, Cardiovascular: Negative for chest pain, palpitations, and edema, Abdomen/GI: Negative for abdominal pain, nausea, vomiting, diarrhea, and constipation, Back: Negative for injury and pain, : Negative for injury, bleeding, discharge, and swelling, MS/Extremity: Negative for injury and deformity, Skin: Negative for injury, rash, and discoloration, Neuro: Negative for headache, weakness, numbness, tingling, and seizure. 19:18 Respiratory: Positive for cough, Negative for dyspnea on exertion, hemoptysis, orthopnea, pleurisy, shortness of breath, sputum production, wheezing. 19:19 ENT: Positive for sore throat. kb Exam: 19:18 Constitutional: This is a well developed, well nourished patient who is awake, alert, kb and in no acute distress. Head/Face: Normocephalic, atraumatic. ENT: Nares patent. No nasal discharge, no septal abnormalities noted. Tympanic membranes are normal and external auditory canals are clear. Oropharynx with no redness, swelling, or masses, exudates, or evidence of obstruction, uvula midline. Mucous membranes moist. Neck: Trachea midline, no thyromegaly or masses palpated, and no cervical lymphadenopathy. Supple, full range of motion without nuchal rigidity, or vertebral point tenderness. No Meningismus. Chest/axilla: Normal chest wall appearance and motion. Nontender with no deformity. No lesions are appreciated. Cardiovascular: Regular rate and rhythm with a normal S1 and S2. No gallops, murmurs, or rubs. Normal PMI, no JVD. No pulse deficits. Respiratory: Lungs have equal breath sounds bilaterally, clear to auscultation and percussion. No rales, rhonchi or wheezes noted. No increased work of breathing, no retractions or nasal flaring. Abdomen/GI: Soft, non-tender, with normal bowel sounds. No distension or tympany. No guarding or rebound. No evidence of tenderness throughout. Skin: Warm, dry with normal turgor. Normal color with no rashes, no lesions, and no evidence of cellulitis. MS/ Extremity: Pulses equal, no cyanosis. Neurovascular intact. Full, normal range of motion. Neuro: Awake and alert, GCS 15, oriented to person, place, time, and situation. Cranial nerves II-XII grossly intact. Motor strength 5/5 in all extremities. Sensory grossly intact. Cerebellar exam normal. Normal gait. Vital Signs: 18:43 BP 111 / 90; Pulse 98; Resp 16; Temp 98.3; Pulse Ox 98% on R/A; Weight 81.65 kg; Height la1 5 ft. 3 in. (160.02 cm); 19:15 BP 113 / 87; Pulse 93; Resp 15 S; Pulse Ox 99% on R/A; cc3 18:43 Body Mass Index 31.89 (81.65 kg, 160.02 cm) la1 MDM: 18:48 Patient medically screened. kb 19:18 Data reviewed: vital signs, nurses notes. Data interpreted: Pulse oximetry: on room air kb is 98 %. Interpretation: normal. Counseling: I had a detailed discussion with the patient and/or guardian regarding: the historical points, exam findings, and any diagnostic results supporting the discharge/admit diagnosis, lab results, the need for outpatient follow up, a family practitioner, to return to the emergency department if symptoms worsen or persist or if there are any questions or concerns that arise at home. 02/21 18:47 Order name: Strep; Complete Time: 19:18 la1 02/21 19:20 Order name: Throat Culture EDNM 02/21 18:48 Order name: Chest Single View XRAY kb 02/21 18:48 Order name: EKG; Complete Time: 18:49 kb 02/21 18:48 Order name: EKG - Nurse/Tech; Complete Time: 19:23 kb Administered Medications: No medications were administered Disposition: 02/22 08:24 Co-signature as Attending Physician, Lio Sterling MD I agree with the assessment and sarah plan of care. Disposition: 02/21/19 19:22 Discharged to Home. Impression: Cough. - Condition is Stable. - Discharge Instructions: Cough, Adult, [id number]. - Prescriptions for Tessalon Perles 100 mg Oral Capsule - take 1 capsule by ORAL route every 8 hours As needed; 15 capsule. - Medication Reconciliation Form, Thank You Letter, Antibiotic Education, Prescription Opioid Use, Work release form form. - Follow up: Emergency Department; When: As needed; Reason: Worsening of condition. Follow up: Private Physician; When: 2 - 3 days; Reason: Recheck today's complaints, Continuance of care, Re-evaluation by your physician. Signatures: Dispatcher [employer] [facility] Nadiya Flores, BLUEBERRY GROWER-C BLUEBERRY GROWER-Lio Freeman MD MD cha Attema, Lee, RN RN la1 Zahra Booth cc3 Corrections: (The following items were deleted from the chart) 02/21 19:19 19:18 Constitutional: Negative for fever, chills, and weight loss, ENT: Negative for kb injury, pain, and discharge, Neck: Negative for injury, pain, and swelling, Cardiovascular: Negative for chest pain, palpitations, and edema, Abdomen/GI: Negative for abdominal pain, nausea, vomiting, diarrhea, and constipation, Back: Negative for injury and pain, : Negative for injury, bleeding, discharge, and swelling, MS/Extremity: Negative for injury and deformity, Skin: Negative for injury, rash, and discoloration, Neuro: Negative for headache, weakness, numbness, tingling, and seizure, kb 19:37 19:22 02/21/2019 19:22 Discharged to Home. Impression: Cough. Condition is Stable. cc3 Discharge Instructions: Cough, Adult, [id number]. Prescriptions for Tessalon Perles 100 mg Oral Capsule - take 1 capsule by ORAL route every 8 hours As needed; 15 capsule. and Forms are Medication Reconciliation Form, Thank You Letter, Antibiotic Education, Prescription Opioid Use. Follow up: Emergency Department; When: As needed; Reason: Worsening of condition. Follow up: Private Physician; When: 2 - 3 days; Reason: Recheck today's complaints, Continuance of care, Re-evaluation by your physician. kb
--- NOTE | 2019-02-21 19:23 | ER ---
Nurse's Notes [facility] Name: Abby Arenas Age: 28 yrs Sex: Female : 1990 Arrival Date: 02/21/2019 Time: 18:37 Bed DIS3 Private MD: Diagnosis: Cough Presentation: 02/21 18:44 Transition of care: patient was not received from another setting of care. Onset of la1 symptoms was February 21, 2019. Risk Assessment: Do you want to hurt yourself or someone else? Patient reports no desire to harm self or others. Initial Sepsis Screen: Does the patient meet any 2 criteria? No. Patient's initial sepsis screen is negative. Does the patient have a suspected source of infection? No. Patient's initial sepsis screen is negative. Care prior to arrival: None. 18:44 Method Of Arrival: Ambulatory la1 18:44 Acuity: RALF 4 la1 18:45 Presenting complaint: Patient states: I have had cough, sore throat for the last few la1 days. Triage Assessment: 19:08 General: Appears in no apparent distress. comfortable, Behavior is calm, cooperative, cc3 appropriate for age. Pain: Denies pain. Historical: - Allergies: 18:44 PENICILLINS; la1 - PMHx: 18:44 None; la1 - Immunization history:: Adult Immunizations up to date. - Social history:: Smoking status: Patient uses tobacco products, smokes one-half pack cigarettes per day. - Ebola Screening: : No symptoms or risks identified at this time. Screenin:08 Abuse screen: Denies threats or abuse. Denies injuries from another. Nutritional cc3 screening: No deficits noted. Tuberculosis screening: No symptoms or risk factors identified. Fall Risk Ambulatory Aid- None/Bed Rest/Nurse Assist (0 pts). Gait- Normal/Bed Rest/Wheelchair (0 pts) Mental Status- Oriented to own ability (0 pts). Assessment: 19:08 General: Appears in no apparent distress. comfortable, Behavior is calm, cooperative, cc3 appropriate for age. Pain: Denies pain. Neuro: Level of Consciousness is awake, alert, obeys commands, Oriented to person, place, time, situation, Appropriate for age. Cardiovascular: Denies chest pain, Capillary refill < 3 seconds Patient's skin is warm and dry. Respiratory: Airway is patent Respiratory effort is even, unlabored, Respiratory pattern is regular, symmetrical. GI: Abdomen is round non-distended. : No signs and/or symptoms were reported regarding the genitourinary system. EENT: No signs and/or symptoms were reported regarding the EENT system. Derm: Skin is intact, is healthy with good turgor, Skin is pink, warm \T\ dry. normal. Musculoskeletal: Circulation, motion, and sensation intact. Range of motion: intact in all extremities. 19:30 Reassessment: Patient appears in no apparent distress at this time. Patient and/or cc3 family updated on plan of care and expected duration. Pain level reassessed. Patient is alert, oriented x 3, equal unlabored respirations, skin warm/dry/pink. PUMP AND STILL OPERATOR Mark discharged the patient home with prescription given. No IV cannula in situ. Patient left ER vitally stable and ambulatory. No valuables left in the patient's room. Patient denies pain at this time. Patient states feeling better. Patient states symptoms have improved. Vital Signs: 18:43 BP 111 / 90; Pulse 98; Resp 16; Temp 98.3; Pulse Ox 98% on R/A; Weight 81.65 kg; Height la1 5 ft. 3 in. (160.02 cm); 19:15 BP 113 / 87; Pulse 93; Resp 15 S; Pulse Ox 99% on R/A; cc3 18:43 Body Mass Index 31.89 (81.65 kg, 160.02 cm) la1 ED Course: 18:37 Patient arrived in ED. as 18:44 Arm band placed on left wrist. la1 18:45 Triage completed. la1 18:47 Nadiya Flores FNP-C is PHCP. kb 18:47 Lio Sterling MD is Attending Physician. kb 19:08 Zahra Booth is Primary Nurse. cc3 19:08 Patient has correct armband on for positive identification. Bed in low position. Call cc3 light in reach. Side rails up X 1. Pulse ox on. NIBP on. 19:22 Chest Single View XRAY In Process Unspecified. EDMS 19:30 No provider procedures requiring assistance completed. Patient did not have IV access cc3 during this emergency room visit. Administered Medications: No medications were administered Outcome: 19:22 Discharge ordered by . kb 19:30 Discharged to home ambulatory, with family. cc3 19:30 Condition: stable 19:30 Discharge instructions given to patient, Instructed on discharge instructions, follow up and referral plans. medication usage, Demonstrated understanding of instructions, follow-up care, medications, Prescriptions given X 1. 19:37 Patient left the ED. cc3 Signatures: Dispatcher [employer] EDMS Nadiya Flores, PRACHI-C PRACHI-Eva Dave Lee RN RN la1 Zahra Booth cc3
[2019-02-21 19:53] VITALS: BP 111/90; TEMP 98.3; O2SAT 98
--- NOTE | 2019-02-21 19:57 | RAD REPORT ---
EXAM DESCRIPTION: Daniel Single View02/21/2019 7:22 pm CLINICAL HISTORY: Chest pain COMPARISON: 2018 FINDINGS: The lungs appear clear of acute infiltrate. The heart is normal size IMPRESSION: No acute abnormalities displayed
--- NOTE | 2019-02-22 11:47 | EKG ---
Test Date: 2019-02-21 Test Time: 19:18:53 Import Clerk: MAE MEASUREMENT RESULTS: Intervals: Rate: 77 WY: 136 QRSD: 82 QT: 362 QTc: 409 [place]: P: 59 WY: 136 QRS: 65 T: 45 INTERPRETIVE STATEMENTS: Normal sinus rhythm Normal ECG Compared to ECG 05/21/2016 11:33:12 Sinus tachycardia no longer present Atrial abnormality no longer present T-wave abnormality no longer present Possible ischemia no longer present Electronically Signed On 02-22-19 11:45:02 CDT by Chepe Siddiqui
== END 2019-02-21 19:37 | disposition home or self-care (01) ==
LOC: ER 18:33
DX: R05 Cough (principal); F17.210 Nicotine dependence, cigarettes, uncomplicated; Z88.0 Allergy status to penicillin
CPT/HCPCS: 71045; 87070; 87081; 93005; 99283

== ENCOUNTER 2019-03-26 11:24 | Emergency (ER) | payer SELFPAY ==
--- OUTSIDE RECORDS SUMMARY | 2019-03-26 11:27 | XMS REPORT ---
:1990 Author [facility] Address [address] [place] [address] [address] [place] [address] Care Team Providers Name Role Phone Unavailable [...]
[2019-03-26] MEDS ORDERED: IBUPROFEN 400 MG TAB ONE (11:51)
[2019-03-26 12:00] LABS: Urine Blood 3+ (NEG); Urine Glucose NEGATIVE (NEG); Urine Protein 2+ (NEG); Urine Specific Gravity >1.030 (1.005-1.030); Urine pH 5.5 (5.0-7.0)
--- NOTE | 2019-03-26 12:10 | ER ---
Nurse's Notes [facility] Name: Abby Arenas Age: 28 yrs Sex: Female : 1990 Arrival Date: 03/26/2019 Time: 11:28 Bed 18 Private MD: None, None Diagnosis: Acute Cystitis;UTI Presentation: 03/26 11:32 Presenting complaint: Burning with urination and urinary frequency x 2 weeks. hb Transition of care: patient was not received from another setting of care. Onset of symptoms was March 11, 2019. Risk Assessment: Do you want to hurt yourself or someone else? Patient reports no desire to harm self or others. Initial Sepsis Screen: Does the patient meet any 2 criteria? No. Patient's initial sepsis screen is negative. Does the patient have a suspected source of infection? No. Patient's initial sepsis screen is negative. Care prior to arrival: None. 11:32 Method Of Arrival: Ambulatory hb 11:32 Acuity: RALF 4 hb Triage Assessment: 11:35 General: Appears in no apparent distress. comfortable, Behavior is cooperative, bp appropriate for age, anxious. Pain: Complains of pain in pelvis. EENT: No deficits noted. Neuro: No deficits noted. Cardiovascular: No deficits noted. Respiratory: No deficits noted. GI: No signs and/or symptoms were reported involving the gastrointestinal system. : Reports burning with urination. Derm: No deficits noted. Musculoskeletal: No deficits noted. 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 - Social history:: Smoking status: Patient uses tobacco products, smokes one-half pack cigarettes per day. - Ebola Screening: : No symptoms or risks identified at this time. - Family history:: not pertinent. - Hospitalizations: : No recent hospitalization is reported. Screenin:35 Abuse screen: Denies threats or abuse. Denies injuries from another. Nutritional bp screening: No deficits noted. Tuberculosis screening: No symptoms or risk factors identified. Fall Risk None identified. Assessment: 11:35 General: SEE TRIAGE NOTE. bp 12:39 Reassessment: PT D/C HOME AMBULATORY WITH FAMILY, DX WITH UTI. bp Vital Signs: 11:32 BP 108 / 84; Pulse 67; Resp 16; Temp 97.8; Pulse Ox 100% on R/A; Weight 74.84 kg; hb Height 5 ft. 5 in. (165.10 cm); Pain 8/10; 12:39 BP 111 / 79; Pulse 75; Resp 17; Temp 98; Pulse Ox 100% ; bp 11:32 Body Mass Index 27.46 (74.84 kg, 165.10 cm) hb ED Course: 11:28 Patient arrived in ED. ag5 11:28 None, None is Private Physician. ag5 11:32 Triage completed. hb 11:32 Arm band placed on. 11:34 Jt Saha MD is Attending Physician. wa 11:35 Patient has correct armband on for positive identification. Bed in low position. Call bp light in reach. Side rails up X2. 11:41 Jose Delvalle, RN is Primary Nurse. bp 11:50 Urine collected: clean catch specimen, clear, filippo colored. jp3 11:50 Urine Culture Sent. jp3 11:50 Urine Microscopic Only Sent. jp3 12:08 Conrad Montes MD is Referral Physician. wa 12:40 No provider procedures requiring assistance completed. Patient did not have IV access bp during this emergency room visit. Administered Medications: 11:50 Drug: Motrin 600 mg Route: PO; bp 12:09 Follow up: Response: No adverse reaction bp 12:15 Drug: Rocephin (cefTRIAXone) 1 grams Route: IM; Site: right gluteus; bp 12:27 Follow up: Response: No adverse reaction bp Outcome: 12:09 Discharge ordered by . wa 12:40 Discharged to home ambulatory, with family. bp 12:40 Condition: stable 12:40 Discharge instructions given to patient, Instructed on discharge instructions, follow up and referral plans. medication usage, Demonstrated understanding of instructions, follow-up care, medications, Prescriptions given X 2. 12:45 Patient left the ED. bp Signatures: Shannon Mills, RN RN Jt Saha MD MD wa Peltier, Brian, RN RN bp Mendel Engel jp3 Lyle Wilder ag5
--- NOTE | 2019-03-26 12:10 | EDPHYS ---
Physician Documentation [facility] Name: Abby Arenas Age: 28 yrs Sex: Female : 1990 Arrival Date: 03/26/2019 Time: 11:28 Bed 18 Private MD: None, None ED Physician Jt Saha HPI: 03/26 11:42 This 28 yrs old Black Female presents to ER via Ambulatory with complaints of Bladder wa Problem. 11:42 The patient presents with urinary symptoms, dysuria, frequency. Onset: The wa symptoms/episode began/occurred 2 week(s) ago. Modifying factors: The symptoms are alleviated by nothing, the symptoms are aggravated by urinating. Associated signs and symptoms: The patient has no apparent associated signs or symptoms. Severity of symptoms: At their worst the symptoms were moderate, in the emergency department the symptoms are unchanged. The patient has not experienced similar symptoms in the past. The patient has not recently seen a physician. c/o painful urination and freq. denies back pain, fever or chills. denies n/v. denies vag d/c. 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 - Social history:: Smoking status: Patient uses tobacco products, smokes one-half pack cigarettes per day. - Ebola Screening: : No symptoms or risks identified at this time. - Family history:: not pertinent. - Hospitalizations: : No recent hospitalization is reported. ROS: 11:44 Positive for urinary symptoms, urinary frequency, burning with urination, Negative wa for hematuria, vaginal bleeding, vaginal discharge, vaginal itching. 11:44 Constitutional: Negative for fever, chills, and weight loss, Eyes: Negative for injury, pain, redness, and discharge, ENT: Negative for injury, pain, and discharge, Neck: Negative for injury, pain, and swelling, Cardiovascular: Negative for chest pain, palpitations, and edema, Respiratory: Negative for shortness of breath, cough, wheezing, and pleuritic chest pain, Abdomen/GI: Negative for abdominal pain, nausea, vomiting, diarrhea, and constipation, Back: Negative for injury and pain, MS/Extremity: Negative for injury and deformity, Skin: Negative for injury, rash, and discoloration, Neuro: Negative for headache, weakness, numbness, tingling, and seizure, Psych: Negative for depression, anxiety, suicide ideation, homicidal ideation, and hallucinations. 11:44 All other systems are negative. Exam: 11:45 Constitutional: This is a well developed, well nourished patient who is awake, alert, wa and in no acute distress. Head/Face: Normocephalic, atraumatic. Eyes: Pupils equal round and reactive to light, extra-ocular motions intact. Lids and lashes normal. Conjunctiva and sclera are non-icteric and not injected. Cornea within normal limits. Periorbital areas with no swelling, redness, or edema. ENT: Nares patent. No nasal discharge, no septal abnormalities noted. Tympanic membranes are normal and external auditory canals are clear. Oropharynx with no redness, swelling, or masses, exudates, or evidence of obstruction, uvula midline. Mucous membranes moist. Neck: Trachea midline, no thyromegaly or masses palpated, and no cervical lymphadenopathy. Supple, full range of motion without nuchal rigidity, or vertebral point tenderness. No Meningismus. Chest/axilla: Normal chest wall appearance and motion. Nontender with no deformity. No lesions are appreciated. Cardiovascular: Regular rate and rhythm with a normal S1 and S2. No gallops, murmurs, or rubs. Normal PMI, no JVD. No pulse deficits. Respiratory: Lungs have equal breath sounds bilaterally, clear to auscultation and percussion. No rales, rhonchi or wheezes noted. No increased work of breathing, no retractions or nasal flaring. Back: No spinal tenderness. No costovertebral tenderness. Full range of motion. Skin: Warm, dry with normal turgor. Normal color with no rashes, no lesions, and no evidence of cellulitis. MS/ Extremity: Pulses equal, no cyanosis. Neurovascular intact. Full, normal range of motion. Neuro: Awake and alert, GCS 15, oriented to person, place, time, and situation. Cranial nerves II-XII grossly intact. Motor strength 5/5 in all extremities. Sensory grossly intact. Cerebellar exam normal. Normal gait. Psych: Awake, alert, with orientation to person, place and time. Behavior, mood, and affect are within normal limits. 11:45 Abdomen/GI: Inspection: abdomen appears normal, Bowel sounds: normal, Palpation: soft, in all quadrants, mild abdominal tenderness, in the suprapubic area. Vital Signs: 11:32 BP 108 / 84; Pulse 67; Resp 16; Temp 97.8; Pulse Ox 100% on R/A; Weight 74.84 kg; hb Height 5 ft. 5 in. (165.10 cm); Pain 8/10; 12:39 BP 111 / 79; Pulse 75; Resp 17; Temp 98; Pulse Ox 100% ; bp 11:32 Body Mass Index 27.46 (74.84 kg, 165.10 cm) hb MDM: 11:34 Patient medically screened. pr 11:45 Differential diagnosis: concern for UTI. will r/o. pain control with motrin. will wa reassess. 12:08 Data reviewed: vital signs, nurses notes. Test interpretation: by ED physician or pr midlevel provider: UA noted for LE and nitrite positive. consistent with UTI. . 12:27 Test interpretation: by ED physician or midlevel provider: UPT negative. UA noted for pr UTI. Response to treatment: the patient's symptoms have markedly improved after treatment. 03/26 11:40 Order name: Urine Microscopic Only; Complete Time: 12:26 pr 03/26 11:48 Order name: Urine Culture pr 03/26 11:50 Order name: Urine Dipstick--Ancillary (enter results); Complete Time: 12:07 03/26 12:16 Order name: Test, Urine; Complete Time: 12:26 [facility] 03/26 11:40 Order name: Urine Dipstick-Ancillary (obtain specimen); Complete Time: 11:44 pr 03/26 11:40 Order name: Urine Test (obtain specimen); Complete Time: 11:44 pr Administered Medications: 11:50 Drug: Motrin 600 mg Route: PO; bp 12:09 Follow up: Response: No adverse reaction bp 12:15 Drug: Rocephin (cefTRIAXone) 1 grams Route: IM; Site: right gluteus; bp 12:27 Follow up: Response: No adverse reaction bp Disposition: 03/26/19 12:09 Discharged to Home. Impression: Acute Cystitis, UTI. - Condition is Stable. - Discharge Instructions: Urinary Tract Infection, Adult, [id number]. - Prescriptions for Keflex 500 mg Oral Capsule - take 1 capsule by ORAL route every 8 hours for 5 days; 15 capsule. Ibuprofen 600 mg Oral Tablet - take 1 tablet by ORAL route every 8 hours As needed take with food; 20 tablet. - Medication Reconciliation Form, Thank You Letter, Antibiotic Education, Prescription Opioid Use form. - Follow up: Conrad Montes MD; When: 2 - 3 days; Reason: Recheck today's complaints. - Problem is new. - Symptoms have improved. - Notes: take antibiotics as prescribed. take motrin for pain as needed. return or see your doctor for further evaluation if not improvin and or worsening Signatures: Dispatcher [employer] EDMS Shannon Mills, RN RN Jt Saha MD MD wa Peltier, Brian, RN RN bp Corrections: (The following items were deleted from the chart) 12:45 12:09 03/26/2019 12:09 Discharged to Home. Impression: Acute Cystitis; UTI. Condition bp is Stable. Forms are Medication Reconciliation Form, Thank You Letter, Antibiotic Education, Prescription Opioid Use. Follow up: Conrad Montes; When: 2 - 3 days; Reason: Recheck today's complaints. Problem is new. Symptoms have improved. von
[2019-03-26 12:18] LABS: Specific Gravity > 1.030 (1.005-1.030); Urine Bacteria >50 /HPF (<20); Urine Culture Reflex Order NOT NEEDED; Urine RBC >50 /HPF (NONE SEEN)
[2019-03-26] MEDS ORDERED: LIDOCAINE 1% MPF 2 ML AMPULE ONE (12:19)
[2019-03-26] MEDS ORDERED: CEFTRIAXONE 1000 MG/VIAL ONE (12:19)
[2019-03-26 13:07] VITALS: O2SAT 100
[2019-03-26 13:08] VITALS: BP 111/79; TEMP 98
== END 2019-03-26 12:45 | disposition home or self-care (01) ==
LOC: ER 11:24
DX: N30.00 Acute cystitis without hematuria (principal); Z88.0 Allergy status to penicillin
CPT/HCPCS: 81003; 81015; 81025; 87086; 87088; 96372; 99283; J2001

== ENCOUNTER 2019-05-17 11:52 | Emergency (ER) | payer SELFPAY ==
--- NOTE | 2019-05-17 12:30 | ER ---
Nurse's Notes [facility] Name: Abby Arenas Age: 29 yrs Sex: Female : 1990 Arrival Date: 05/17/2019 Time: 11:55 Bed 14 Private MD: Diagnosis: Urinary tract infection, site not specified Presentation: 05/17 12:06 Presenting complaint: Patient states: "I have been in pain with a bladder infection for aj1 the past 4 days" Patient reports burning with urination. Denies fever. Transition of care: patient was not received from another setting of care. Onset of symptoms was May 17, 2019. Risk Assessment: Do you want to hurt yourself or someone else? Patient reports no desire to harm self or others. Initial Sepsis Screen: Does the patient meet any 2 criteria? No. Patient's initial sepsis screen is negative. Does the patient have a suspected source of infection? Yes: Dysuria/Frequency/Urgency/UTI. Care prior to arrival: None. 12:06 Method Of Arrival: Ambulatory [facility] 12:06 Acuity: RALF 4 aj1 Triage Assessment: 12:07 General: Appears in no apparent distress. comfortable, Behavior is calm, cooperative, aj1 appropriate for age. Pain: Pain currently is 8 out of 10 on a pain scale. Neuro: Level of Consciousness is awake, alert, obeys commands. Cardiovascular: Patient's skin is warm and dry. Respiratory: Airway is patent Respiratory effort is even, unlabored, Respiratory pattern is regular, symmetrical. 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 - Social history:: Smoking status: Patient uses tobacco products, smokes one-half pack cigarettes per day. - Ebola Screening: : Patient denies travel to an Ebola-affected area in the 21 days before illness onset. Screenin:41 Abuse screen: Denies threats or abuse. Nutritional screening: No deficits noted. tw2 Tuberculosis screening: No symptoms or risk factors identified. Fall Risk None identified. Assessment: 12:08 General: Appears in no apparent distress. Behavior is calm, cooperative, appropriate tw2 for age. Neuro: Level of Consciousness is awake, alert, obeys commands. Cardiovascular: Patient's skin is warm and dry. Respiratory: Airway is patent Respiratory effort is even, unlabored, Respiratory pattern is regular, symmetrical. : Reports burning with urination. Musculoskeletal: Range of motion: intact in all extremities. 12:42 Reassessment: Patient appears in no apparent distress at this time. No changes from tw2 previously documented assessment. Patient and/or family updated on plan of care and expected duration. Pain level reassessed. Patient is alert, oriented x 3, equal unlabored respirations, skin warm/dry/pink. Vital Signs: 12:07 BP 115 / 81; Pulse 89; Resp 18; Temp 97.7; Pulse Ox 100% on R/A; Weight 74.84 kg (R); aj1 Height 5 ft. 5 in. (165.10 cm) (R); Pain 8/10; 12:07 Body Mass Index 27.46 (74.84 kg, 165.10 cm) aj1 ED Course: 11:55 Patient arrived in ED. mr 12:07 Triage completed. aj1 12:07 Arm band placed on Patient placed in an exam room. aj1 12:08 Bed in low position. Call light in reach. Adult w/ patient. tw2 12:13 Modesta Dillon RN is Primary Nurse. tw2 12:16 Andrew Felix PA is PHCP. [facility] 12:16 Lio Sterling MD is Attending Physician. [facility] 12:41 No provider procedures requiring assistance completed. Patient did not have IV access tw2 during this emergency room visit. Administered Medications: No medications were administered Outcome: 12:29 Discharge ordered by . [facility] 12:41 Discharged to home ambulatory. tw2 12:41 Condition: stable 12:41 Discharge instructions given to patient, friend, Instructed on discharge instructions, follow up and referral plans. medication usage, Demonstrated understanding of instructions, follow-up care, medications, Prescriptions given X 1. 12:43 Patient left the ED. tw2 Addendum: 05/19/2019 07:34 Addendum: Culture Results: Positive urine culture. No further action required. Bacteria e b sensitive to prescribed antibiotic. Signatures: Charlotte Manjarrez RN RN aj1 Mickail, KE Morales, Selena mr Modesta Dillon, RN RN tw2 Xochilt Gimenez
--- NOTE | 2019-05-17 12:30 | EDPHYS ---
Physician Documentation [facility] Name: Abby Arenas Age: 29 yrs Sex: Female : 1990 Arrival Date: 05/17/2019 Time: 11:55 Bed 14 Private MD: ED Physician Lio Sterling HPI: 05/17 12:16 This 29 yrs old Black Female presents to ER via Ambulatory with complaints of Urinary jmm Problem. 12:16 The patient presents with urinary symptoms. Onset: The symptoms/episode began/occurred jmm gradually, 5 day(s) ago. Modifying factors: The symptoms are alleviated by nothing, the symptoms are aggravated by nothing. Associated signs and symptoms: Pertinent negatives: fever, vomiting. This is a 29 year old female with no chronic medical conditions that presents to the ED with complaints of painful urination, increased frequency, beginning 5 days ago. Denies fever or abdominal pain. Denies vomiting. . 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 - Social history:: Smoking status: Patient uses tobacco products, smokes one-half pack cigarettes per day. - Ebola Screening: : Patient denies travel to an Ebola-affected area in the 21 days before illness onset. ROS: 12:16 Constitutional: Negative for fever, chills, and weight loss, Cardiovascular: Negative jmm for chest pain, palpitations, and edema, Respiratory: Negative for shortness of breath, cough, wheezing, and pleuritic chest pain. 12:16 : Positive for urinary symptoms. 12:16 All other systems are negative. Exam: 12:16 Constitutional: This is a well developed, well nourished patient who is awake, alert, jmm and in no acute distress. Head/Face: atraumatic. Eyes: EOMI, no conjunctival erythema appreciated ENT: Moist Mucus Membranes Neck: Trachea midline, Supple Chest/axilla: Normal chest wall appearance and motion. Cardiovascular: Regular rate and rhythm. No edema appreciated Respiratory: Normal respirations, no respiratory distress appreciated 12:16 Back: Normal ROM Skin: General appearance color normal MS/ Extremity: Moves all extremities, no obvious deformities appreciated, no edema noted to the lower extremities Neuro: Awake and alert, normal gait 12:16 Abdomen/GI: Inspection: abdomen appears normal, Bowel sounds: normal, Palpation: abdomen is soft and non-tender. Vital Signs: 12:07 BP 115 / 81; Pulse 89; Resp 18; Temp 97.7; Pulse Ox 100% on R/A; Weight 74.84 kg (R); aj1 Height 5 ft. 5 in. (165.10 cm) (R); Pain 8/10; 12:07 Body Mass Index 27.46 (74.84 kg, 165.10 cm) aj1 MDM: 12:16 Patient medically screened. [facility] 12:28 Data reviewed: vital signs, nurses notes. Counseling: I had a detailed discussion with cachorro the patient and/or guardian regarding: the historical points, exam findings, and any diagnostic results supporting the discharge/admit diagnosis, lab results, the need for outpatient follow up, to return to the emergency department if symptoms worsen or persist or if there are any questions or concerns that arise at home. ED course: Patient is alert and non toxic in appearance in the ED. I discussed return precautions with the patient. Patient understood and agrees with the plan of care. . 05/17 12:19 Order name: Urine Microscopic Only [facility] 05/17 12:22 Order name: Urine Dipstick--Ancillary (enter results) eb 05/17 12:19 Order name: Urine Dipstick-Ancillary (obtain specimen); Complete Time: 12:19 [facility] 05/17 12:19 Order name: Urine Test (obtain specimen); Complete Time: 12:19 [facility] 05/17 12:22 Order name: Urine --Ancillary (enter results) eb Administered Medications: No medications were administered Disposition: 13:43 Co-signature as Attending Physician, Lio Sterling MD I agree with the assessment and [facility] plan of care. Disposition: 05/17/19 12:29 Discharged to Home. Impression: Urinary tract infection, site not specified. - Condition is Stable. - Discharge Instructions: Urinary Tract Infection, Adult. - Prescriptions for Bactrim DS 800- 160 mg Oral Tablet - take 1 tablet by ORAL route every 12 hours for 10 days; 20 tablet. - Medication Reconciliation Form, Thank You Letter, Antibiotic Education, Prescription Opioid Use form. - Follow up: Private Physician; When: 2 - 3 days; Reason: Recheck today's complaints, Continuance of care, Re-evaluation by your physician. Signatures: Dispatcher [employer] Charlotte Devlin, RN RN aj1 Lio Sterling MD MD cha Mickail, Joel, PA PA jmm Calderon, Audri RN RN aa5 Modesta Dillon RN RN tw2 Corrections: (The following items were deleted from the chart) 12:43 12:29 05/17/2019 12:29 Discharged to Home. Impression: Urinary tract infection, site tw2 not specified. Condition is Stable. Forms are Medication Reconciliation Form, Thank You Letter, Antibiotic Education, Prescription Opioid Use. Follow up: Private Physician; When: 2 - 3 days; Reason: Recheck today's complaints, Continuance of care, Re-evaluation by your physician. cachorro
[2019-05-17 13:48] LABS: Urine Bacteria >50 /HPF (<20); Urine Culture Reflex Order REFLEXED; Urine Mucus 1+ /HPF (NONE SEEN)
[2019-05-17 16:31] LABS: Urine Blood TRACE (NEG); Urine Glucose NEGATIVE (NEG); Urine Protein 2+ (NEG); Urine Specific Gravity 1.025 (1.005-1.030); Urine pH 6.5 (5.0-7.0)
--- OUTSIDE RECORDS SUMMARY | 2019-05-20 05:23 | XMS REPORT ---
:1990 [facility] [address] [place] [address] [address] [place] [address] Care Team Providers Name Role Phone Unavailable [...]
== END 2019-05-17 12:43 | disposition home or self-care (01) ==
LOC: ER 11:52
DX: N39.0 Urinary tract infection, site not specified (principal); F17.210 Nicotine dependence, cigarettes, uncomplicated; Z88.0 Allergy status to penicillin
CPT/HCPCS: 81003; 81015; 81025; 87077; 87086; 87088; 87186; 99282

== ENCOUNTER 2019-11-04 14:17 | Emergency (ER) | payer SELFPAY ==
--- OUTSIDE RECORDS SUMMARY | 2019-11-04 14:19 | XMS REPORT ---
:1990 Author Organization [facility] t Address [address] [place] [address] Care Team Providers Name Role Phone Unavailable Unavailable Unavailable Payers Payer Name Policy Type Policy Number Effective Date Expiration D ate Problems This patient has no known problems. Allergies, Adverse Reactions, Alerts Allergy Allergy Status Severity Reaction(s) Onset Inactive Treating C omments Name Type Date Date Clinician No Known DA Active U 2018-07 Allergies -02 00:00:0 0 Medications This patient has no known medications.
[2019-11-04 15:20] LABS: Urine Specific Gravity 1.025 (1.005-1.030)
[2019-11-04 15:21] LABS: Urine Blood NEGATIVE (NEG); Urine Glucose NEGATIVE (NEG); Urine Protein NEGATIVE (NEG); Urine Specific Gravity 1.025 (1.005-1.030)
--- NOTE | 2019-11-04 15:25 | EDPHYS ---
Physician Documentation [facility] Name: Abby Arenas Age: 29 yrs Sex: Female : 1990 Arrival Date: 11/04/2019 Time: 14:19 Bed 18 Private MD: ED Physician Jesus Shultz HPI: 11/03 15:11 This 29 yrs old Black Female presents to ER via Ambulatory with complaints of Bladder pm1 Problem. 15:11 The patient presents with urinary symptoms, dysuria. Onset: The symptoms/episode pm1 began/occurred 1 week(s) ago. Modifying factors: The symptoms are alleviated by nothing, the symptoms are aggravated by urinating. Associated signs and symptoms: Pertinent positives: suprapubic pain, Pertinent negatives: diarrhea, fever, nausea, vomiting. Severity of symptoms: in the emergency department the symptoms are actually worse. The patient is sexually active, reportedly has a single partner. The patient has experienced similar episodes in the past, multiple times. It is unknown whether or not the patient has recently seen a physician. 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 - Social history:: Smoking status: Patient denies any tobacco usage or history of. ROS: 15:11 Positive for burning with urination. pm1 15:11 Constitutional: Negative for fever, chills, and weight loss, Cardiovascular: Negative for chest pain, palpitations, and edema, Respiratory: Negative for shortness of breath, cough, wheezing, and pleuritic chest pain. 15:11 Back: Negative for injury and pain, MS/Extremity: Negative for injury and deformity, Skin: Negative for injury, rash, and discoloration. 15:11 Neuro: Negative for headache, weakness, numbness, tingling, and seizure. 15:11 Abdomen/GI: Positive for abdominal pain, of the suprapubic area, Negative for nausea, vomiting, and diarrhea. Exam: 15:11 Constitutional: This is a well developed, well nourished patient who is awake, alert, pm1 and in no acute distress. Head/Face: Normocephalic, atraumatic. Neck: Trachea midline, no thyromegaly or masses palpated, and no cervical lymphadenopathy. Supple, full range of motion without nuchal rigidity, or vertebral point tenderness. No Meningismus. Chest/axilla: Normal chest wall appearance and motion. Nontender with no deformity. No lesions are appreciated. 15:11 Abdomen/GI: Soft, non-tender, with normal bowel sounds. No distension or tympany. No guarding or rebound. No evidence of tenderness throughout. Back: No spinal tenderness. No costovertebral tenderness. Full range of motion. Skin: Warm, dry with normal turgor. Normal color with no rashes, no lesions, and no evidence of cellulitis. MS/ Extremity: Pulses equal, no cyanosis. Neurovascular intact. Full, normal range of motion. 15:11 Cardiovascular: Exam negative for acute changes, Rate: normal, Pulses: no pulse deficits are appreciated, Edema: is not appreciated. 15:11 Respiratory: Exam negative for acute changes, respiratory distress, shortness of breath, wheezing. 15:11 Neuro: Exam negative for acute changes, Orientation: is normal, Mentation: is normal, Motor: is normal. Vital Signs: 14:38 BP 107 / 69; Pulse 75; Resp 17 S; Temp 98.2(O); Pulse Ox 99% on R/A; Weight 74.84 kg ca1 (R); Height 5 ft. 5 in. (165.10 cm) (R); Pain 7/10; 15:36 BP 111 / 65; Pulse 71; Resp 16; Temp 98.5; Pulse Ox 99% ; bp 14:38 Body Mass Index 27.46 (74.84 kg, 165.10 cm) ca1 MDM: 15:11 Patient medically screened. pm1 15:23 Data reviewed: vital signs. Data interpreted: Pulse oximetry: on room air is 99 %. pm1 Interpretation: normal. Counseling: I had a detailed discussion with the patient and/or guardian regarding: the historical points, exam findings, and any diagnostic results supporting the discharge/admit diagnosis, lab results, the need for outpatient follow up, Pending urine culture. 15:23 ED course: Patient reports allergy to PCN and does not know the reaction. Adopted and pm1 parents both . No history of Rocephin given in prior visits. Prior visits show resistance to Rocephin. Patient with history of multiple UTIs and prior cultures reviewed. Sensitivity to Macrobid with prior cultures therefore will prescribe it. 11/03 14:55 Order name: Urine Dipstick--Ancillary (enter results); Complete Time: 15:23 em1 11/03 15:00 Order name: Urine --Ancillary (enter results); Complete Time: 15:23 em1 11/03 14:41 Order name: Urine Dipstick-Ancillary (obtain specimen); Complete Time: 14:54 ca1 11/03 14:41 Order name: Urine Test (obtain specimen); Complete Time: 14:54 ca1 11/03 15:21 Order name: Urine Microscopic Only bp 11/03 15:21 Order name: Urine Culture bp Administered Medications: No medications were administered Disposition: 18:25 Co-signature as Attending Physician, Jesus Shultz MD. rn Disposition: 11/04/19 15:24 Discharged to Home. Impression: Urinary tract infection, site not specified. - Condition is Stable. - Discharge Instructions: Urinary Tract Infection, Adult. - Prescriptions for Macrobid 100 mg Oral Capsule - take 1 capsule by ORAL route every 12 hours for 10 days; 20 capsule. - Medication Reconciliation Form, Thank You Letter, Antibiotic Education, Prescription Opioid Use form. - Follow up: Emergency Department; When: As needed; Reason: Worsening of condition. Follow up: Private Physician; When: 2 - 3 days; Reason: Recheck today's complaints, Continuance of care, Re-evaluation by your physician. - Problem is new. - Symptoms have improved. Signatures: Dispatcher [employer] EDNM Jesus Shultz MD MD rn Marinas, Patrick, NP SAND SLINGER OPERATOR pm1 Jose Delvalle RN RN bp Maddy Sanabria RN RN ca1 Corrections: (The following items were deleted from the chart) 15:37 15:24 11/04/2019 15:24 Discharged to Home. Impression: Urinary tract infection, site bp not specified. Condition is Stable. Forms are Medication Reconciliation Form, Thank You Letter, Antibiotic Education, Prescription Opioid Use. Follow up: Emergency Department; When: As needed; Reason: Worsening of condition. Follow up: Private Physician; When: 2 - 3 days; Reason: Recheck today's complaints, Continuance of care, Re-evaluation by your physician. Problem is new. Symptoms have improved. pm1
--- NOTE | 2019-11-04 15:25 | ER ---
Nurse's Notes [facility] Name: Abby Arenas Age: 29 yrs Sex: Female : 1990 Arrival Date: 11/04/2019 Time: 14:19 Bed 18 Private MD: Diagnosis: Urinary tract infection, site not specified Presentation: 11/03 14:38 Chief complaint: Patient states: Reports burning sensation with urination, urinary ca1 frequency and urgency. C/O suprapubic pain x 1 week. Coronavirus screen: Proceed with normal triage. Patient denies a cough. Patient denies shortness of breath or difficulty breathing. Patient denies measured and/or subjective temperature greater than 100.4F prior to today's visit. Patient denies travel on a cruise ship or to a country the [facility] currently lists as an affected area. Patient denies contact with known and/or suspected case of COVID-19. Ebola Screen: Patient negative for fever greater than or equal to 101.5 degrees Fahrenheit, and additional compatible Ebola Virus Disease symptoms Patient denies exposure to infectious person. Patient denies travel to an Ebola-affected area in the 21 days before illness onset. No symptoms or risks identified at this time. Initial Sepsis Screen: Does the patient meet any 2 criteria? No. Patient's initial sepsis screen is negative. Does the patient have a suspected source of infection? No. Patient's initial sepsis screen is negative. Risk Assessment: Do you want to hurt yourself or someone else? Patient reports no desire to harm self or others. Onset of symptoms was November 04, 2019. 14:38 Method Of Arrival: Ambulatory ca1 14:38 Acuity: RALF 4 ca1 Triage Assessment: 14:40 General: Appears in no apparent distress. comfortable, Behavior is calm, cooperative, ca1 appropriate for age. Pain: Complains of pain in suprapubic area Pain currently is 7 out of 10 on a pain scale. 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 - Social history:: Smoking status: Patient denies any tobacco usage or history of. Screenin:40 Abuse screen: Denies threats or abuse. Denies injuries from another. Nutritional bp screening: No deficits noted. Tuberculosis screening: No symptoms or risk factors identified. Fall Risk None identified. Assessment: 14:40 General: SEE TRIAGE NOTE. bp 15:36 Reassessment: PT D/C HOME AMBULATORY, DX WITH UTI. bp Vital Signs: 14:38 BP 107 / 69; Pulse 75; Resp 17 S; Temp 98.2(O); Pulse Ox 99% on R/A; Weight 74.84 kg ca1 (R); Height 5 ft. 5 in. (165.10 cm) (R); Pain 7/10; 15:36 BP 111 / 65; Pulse 71; Resp 16; Temp 98.5; Pulse Ox 99% ; bp 14:38 Body Mass Index 27.46 (74.84 kg, 165.10 cm) ca1 ED Course: 14:19 Patient arrived in ED. ag5 14:40 Triage completed. ca1 14:40 Arm band placed on right wrist. ca1 14:40 Patient has correct armband on for positive identification. Bed in low position. Call bp light in reach. Side rails up X2. 15:07 Urine collected: clean catch specimen, clear. ca1 15:09 Jp Bustos NP is PHCP. pm1 15:09 Jesus Shultz MD is Attending Physician. pm1 15:12 Jose Delvalle, NILTON is Primary Nurse. bp 15:36 No provider procedures requiring assistance completed. Patient did not have IV access bp during this emergency room visit. Administered Medications: No medications were administered Outcome: 15:24 Discharge ordered by . pm1 15:36 Discharged to home ambulatory. bp 15:36 Condition: stable 15:36 Discharge instructions given to patient, Instructed on discharge instructions, follow up and referral plans. medication usage, Demonstrated understanding of instructions, follow-up care, medications, Prescriptions given X 1. 15:37 Patient left the ED. bp Signatures: Jp Bustos NP WET SILK HANGER pm1 Jose Delvalle, NILTON RN bp Maddy Sanabria RN RN ca1 TinaLyle ag5
[2019-11-04 15:42] VITALS: O2SAT 99
[2019-11-04 15:43] VITALS: BP 111/65; TEMP 98.5
[2019-11-04 15:46] LABS: Urine Bacteria <20 /HPF (<20); Urine Culture Reflex Order NOT NEEDED; Urine Mucus 1+ /HPF (NONE SEEN); Urine RBC <5 /HPF (NONE SEEN)
== END 2019-11-04 15:37 | disposition home or self-care (01) ==
LOC: ER 14:17
DX: N39.0 Urinary tract infection, site not specified (principal); Z88.0 Allergy status to penicillin
CPT/HCPCS: 81003; 81015; 81025; 87086; 87088; 99283

== ENCOUNTER 2020-01-11 14:07 | Emergency (ER) | payer SELFPAY ==
--- OUTSIDE RECORDS SUMMARY | 2020-01-11 14:08 | XMS REPORT | Continuity of Care Document ---
:1990 Author Organization [facility] t Address [address] [place] [address] Care Team Providers Name Role Phone Unavailable Unavailable Unavailable Payers Payer Name Policy Type Policy Number Effective Date Expiration Date S ource Problems This patient has no known problems. Allergies, Adverse Reactions, Alerts Allergy Allergy Status Severity Reaction(s) Onset Inactive Treating Comm ents Source Name Type Date Date Clinician No Known DA Active U 0 [facility] 07-11 [facility] 00:00: e 00 [facility] Medications This patient has no known medications. Procedures This patient has no known procedures. Results This patient has no known results.
[2020-01-11 15:04] LABS: Urine Blood TRACE (NEG); Urine Glucose NEGATIVE (NEG); Urine Protein TRACE (NEG); Urine Specific Gravity >1.030 (1.005-1.030)
[2020-01-11 15:19] LABS: Urine Mucus 1+ /HPF (NONE SEEN)
[2020-01-11 15:20] LABS: Urine Bacteria <20 /HPF (<20); Urine Culture Reflex Order REFLEXED; Urine RBC <5 /HPF (NONE SEEN)
[2020-01-11 15:36] LABS: Absolute Lymphocytes (CBC) 2.3 K/uL (0.7-4.9); Basophils % 0.5 % (0-1.3); Hematocrit 41.7 % (36.0-45.0); Lymphocytes % 36.1 % (15.3-44.8); MPV 8.2 fL (7.6-11.3); RBC Red Blood Cell Count 5.23 M/uL (3.86-4.86)
[2020-01-11 15:50] LABS: Albumin 3.7 g/dL (3.4-5.0); Bilirubin Direct 0.2 mg/dL (0-0.2); Bilirubin Total 0.8 mg/dL (0.2-1.0); Potassium 4.2 mmol/L (3.5-5.1); Protein, Total 7.4 g/dL (6.4-8.2)
--- NOTE | 2020-01-11 16:18 | RAD REPORT ---
EXAM DESCRIPTION: CTAbdomen Pelvis W Contrast - 01/11/2020 4:03 pm CLINICAL HISTORY: Abdominal pain. FLANK PAIN COMPARISON: Abdomen Pelvis W Contrast dated 01/11/2018; CT ABD PELVIS W CONTRAST dated 11/11/2014 TECHNIQUE: Biphasic CT imaging of the abdomen and pelvis was performed with 100 ml non-ionic IV cont rast. All CT scans are performed using dose optimization technique as appropriate and may include automated exposure control or mA/KV adjustment according to patient size. FINDINGS: The lung bases are clear. The liver, spleen, pancreas, adrenal glands and kidneys are within normal limits. No bowel obstruction, free air, free fluid or abscess. The appendix is normal. No evidence of signi ficant lymphadenopathy. No suspicious bony findings. IMPRESSION: No acute intra-abdominal or pelvic finding.
--- NOTE | 2020-01-11 16:37 | ER ---
Nurse's Notes [facility] Name: Abby Arenas Age: 29 yrs Sex: Female : 1990 Arrival Date: 01/11/2020 Time: 14:12 Bed 18 Private MD: Diagnosis: Urinary tract infection, site not specified;Unspecified abdominal pain Presentation: 01/10 14:35 Chief complaint: Patient states: lower abdominal pain x 2 weeks, gradually getting dm5 worse. Hurts when laying on stomach, denies n/v. Coronavirus screen: Proceed with normal triage. Patient denies a cough. Patient denies shortness of breath or difficulty breathing. Patient denies measured and/or subjective temperature greater than 100.4F prior to today's visit. Patient denies travel on a cruise ship or to a country the [facility] currently lists as an affected area. Patient denies contact with known and/or suspected case of COVID-19. Ebola Screen: Patient negative for fever greater than or equal to 101.5 degrees Fahrenheit, and additional compatible Ebola Virus Disease symptoms Patient denies exposure to infectious person. Patient denies travel to an Ebola-affected area in the 21 days before illness onset. No symptoms or risks identified at this time. Risk Assessment: Do you want to hurt yourself or someone else? Patient reports no desire to harm self or others. 14:35 Method Of Arrival: Ambulatory dm5 14:35 Acuity: RALF 3 dm5 14:40 Initial Sepsis Screen: Does the patient meet any 2 criteria? No. Patient's initial vc sepsis screen is negative. Does the patient have a suspected source of infection? Yes: Dysuria/Frequency/Urgency/UTI. Onset of symptoms. Triage Assessment: 14:43 General: Appears in no apparent distress. Behavior is calm, cooperative, appropriate vc for age. Pain: Complains of pain in suprapubic area, right inguinal area and left inguinal area Pain does not radiate. Pain currently is 6 out of 10 on a pain scale. at worst was 10 out of 10 on a pain scale. Quality of pain is described as sharp, stabbing, Pain began 2 weeks ago Is continuous. GI: Abdomen is round non-distended. 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 - Social history:: Smoking status: Patient denies any tobacco usage or history of. Screenin:43 Abuse screen: Denies threats or abuse. Nutritional screening: No deficits noted. vc Tuberculosis screening: No symptoms or risk factors identified. Fall Risk None identified. Assessment: 14:44 GI: Abd is non tender. vc 14:53 General: Appears in no apparent distress. uncomfortable, ill, Behavior is calm, vc cooperative, appropriate for age. Pain: Complains of pain in left inguinal area and right inguinal area and suprapubic area Pain does not radiate. Pain currently is 6 out of 10 on a pain scale. at worst was 10 out of 10 on a pain scale. Neuro: Level of Consciousness is awake, alert, obeys commands, Oriented to person, place, time, situation. Cardiovascular: Capillary refill < 3 seconds Patient's skin is warm and dry. Respiratory: Airway is patent Respiratory effort is even, unlabored, Respiratory pattern is regular, symmetrical. GI: Bowel sounds. : Urine is cloudy. EENT: No signs and/or symptoms were reported regarding the EENT system. Derm: Skin is intact, is healthy with good turgor, Skin temperature is warm. 15:30 Reassessment: Patient appears in no apparent distress at this time. Patient and/or vc family updated on plan of care and expected duration. Pain level reassessed. Patient is alert, oriented x 3, equal unlabored respirations, skin warm/dry/pink. 16:30 Reassessment: Patient appears in no apparent distress at this time. Patient and/or vc family updated on plan of care and expected duration. Pain level reassessed. Patient is alert, oriented x 3, equal unlabored respirations, skin warm/dry/pink. 16:56 Reassessment: Patient to be discharge pending shot time. vc Vital Signs: 14:40 BP 121 / 81; Pulse 62; Resp 18; Temp 98.4(O); Pulse Ox 98% ; Weight 74.84 kg; Height 5 vc ft. 5 in. (165.10 cm); Pain 6/10; 15:00 BP 106 / 74; Pulse 53; Resp 17; Pulse Ox 98% on R/A; vc 16:00 BP 97 / 75; Pulse 62; Resp 18; Pulse Ox 100% on R/A; vc 14:40 Body Mass Index 27.46 (74.84 kg, 165.10 cm) vc ED Course: 14:12 Patient arrived in ED. mr 14:30 Niurka Bland, NILTON is Primary Nurse. vc 14:36 Triage completed. dm5 14:36 Jp Bustos NP is PHCP. pm1 14:36 Augusta Daniel MD is Attending Physician. pm1 14:44 Arm band placed on. vc 15:40 Patient has correct armband on for positive identification. Placed in gown. Bed in low jp3 position. Call light in reach. Side rails up X 1. Warm blanket given. Verbal reassurance given. Pulse ox on. NIBP on. 15:40 Urine collected: clean catch specimen, clear, filippo colored. jp3 15:45 Missed attempt(s): 20 gauge in right wrist. Bleeding controlled, band aid applied, jp3 catheter tip intact. 15:55 Initial lab(s) drawn, by ca, sent to lab. Inserted saline lock: 20 gauge in left jp3 antecubital area, using aseptic technique. Blood collected. 16:03 CT Abd/Pelvis - IV Contrast Only In Process Unspecified. EDMS 16:56 No provider procedures requiring assistance completed. vc 17:19 IV discontinued, intact, bleeding controlled, No redness/swelling at site. Pressure vc dressing applied. Administered Medications: 16:55 Drug: Rocephin 1 grams Route: IV; Rate: calculated rate; Site: left antecubital; vc 16:57 Follow up: IV Status: Completed infusion; IV Intake: 20ml vc Point of Care Testing: Urine : 15:40 hCG Reading: Negative; Control Reading: Positive; jp3 Intake: 16:57 IV: 20ml; Total: 20ml. vc Outcome: 16:36 Discharge ordered by . pm1 17:19 Discharged to home ambulatory. vc 17:19 Condition: good 17:19 Discharge instructions given to patient, Instructed on discharge instructions, follow up and referral plans. no drinking with medication, no driving heavy equipment, medication usage, Demonstrated understanding of instructions, follow-up care, medications, Prescriptions given X 2. 17:19 Patient left the ED. vc Signatures: Dispatcher [employer] Maria T Hidalgo, NILTON RN dm5 Selena Alvarado mr Juli, Jp, BONE WORKER BONE WORKER pm1 Mendel Engel jp3 Niurka Bland, NILTON RN vc
--- NOTE | 2020-01-11 16:37 | EDPHYS ---
Physician Documentation [facility] Name: Abby Arenas Age: 29 yrs Sex: Female : 1990 Arrival Date: 01/11/2020 Time: 14:12 Bed 18 Private MD: ED Physician Augusta Daniel HPI: 01/10 15:24 This 29 yrs old Black Female presents to ER via Ambulatory with complaints of Abdominal pm1 Pain. 15:24 The patient presents with abdominal pain suprapubic area. Onset: The symptoms/episode pm1 began/occurred 2 week(s) ago. The symptoms do not radiate. Associated signs and symptoms: Pertinent positives: dysuria, Pertinent negatives: nausea, vomiting, and diarrhea, chest pain, constipation, fever, headache, shortness of breath. The symptoms are described as achy, constant. Modifying factors: the symptoms are aggravated by pressure, urinating. Severity of pain: in the emergency department the pain is actually worse. The patient has experienced similar episodes in the past, multiple times, but today's symptoms are worse, more painful, today's symptoms are similar, to previous UTI. The patient has not recently seen a physician. 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 - Social history:: Smoking status: Patient denies any tobacco usage or history of. ROS: 15:27 Constitutional: Negative for fever, chills, and weight loss, Eyes: Negative for injury, pm1 pain, redness, and discharge, ENT: Negative for injury, pain, and discharge, Neck: Negative for injury, pain, and swelling, Cardiovascular: Negative for chest pain, palpitations, and edema, Respiratory: Negative for shortness of breath, cough, wheezing, and pleuritic chest pain. 15:27 Back: Negative for injury and pain. 15:27 MS/Extremity: Negative for injury and deformity, Skin: Negative for injury, rash, and discoloration, Neuro: Negative for headache, weakness, numbness, tingling, and seizure. 15:27 Abdomen/GI: Positive for abdominal pain, of the suprapubic area, Negative for nausea, vomiting, and diarrhea, constipation. 15:27 : Positive for burning with urination. Exam: 15:27 Constitutional: This is a well developed, well nourished patient who is awake, alert, pm1 and in no acute distress. Head/Face: Normocephalic, atraumatic. Chest/axilla: Normal chest wall appearance and motion. Nontender with no deformity. No lesions are appreciated. 15:27 Back: No spinal tenderness. No costovertebral tenderness. Full range of motion. Skin: Warm, dry with normal turgor. Normal color with no rashes, no lesions, and no evidence of cellulitis. MS/ Extremity: Pulses equal, no cyanosis. Neurovascular intact. Full, normal range of motion. 15:27 Cardiovascular: Exam negative for acute changes, Rate: normal, Rhythm: regular, Pulses: no pulse deficits are appreciated. 15:27 Respiratory: Exam negative for acute changes, respiratory distress, shortness of breath. 15:27 Abdomen/GI: Inspection: abdomen appears normal, Palpation: soft, in all quadrants, mild abdominal tenderness, in the suprapubic area, mass, is not appreciated, rebound tenderness, is not appreciated. 15:27 Neuro: Exam negative for acute changes, Orientation: is normal, Mentation: is normal, Motor: is normal, moves all fours. Vital Signs: 14:40 BP 121 / 81; Pulse 62; Resp 18; Temp 98.4(O); Pulse Ox 98% ; Weight 74.84 kg; Height 5 vc ft. 5 in. (165.10 cm); Pain 6/10; 15:00 BP 106 / 74; Pulse 53; Resp 17; Pulse Ox 98% on R/A; vc 16:00 BP 97 / 75; Pulse 62; Resp 18; Pulse Ox 100% on R/A; vc 14:40 Body Mass Index 27.46 (74.84 kg, 165.10 cm) vc MDM: 14:39 Patient medically screened. pm1 16:35 Data reviewed: vital signs. Data interpreted: Pulse oximetry: on room air is 98 %. pm1 Interpretation: normal. Counseling: I had a detailed discussion with the patient and/or guardian regarding: the historical points, exam findings, and any diagnostic results supporting the discharge/admit diagnosis, lab results, radiology results, the need for outpatient follow up, to return to the emergency department if symptoms worsen or persist or if there are any questions or concerns that arise at home. 16:37 ED course: Patient used some left over macrobid from prior UTI to try to treat her pm1 symptoms. No improvement in symptoms. Patient allergic to PCN. Will d/c home with Bactrim DS. 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 pm1 01/10 14:52 Order name: Urine Microscopic Only; Complete Time: 15:24 vc 01/10 14:55 Order name: Urine Dipstick--Ancillary (enter results); Complete Time: 15:15 em1 01/10 14:55 Order name: Urine --Ancillary (enter results) em 01/10 15:01 Order name: Basic Metabolic Panel; Complete Time: 16:01 pm1 01/10 15:01 Order name: CBC with Diff; Complete Time: 15:45 pm1 01/10 14:52 Order name: Urine Dipstick-Ancillary (obtain specimen); Complete Time: 14:52 vc 01/10 15:01 Order name: Hepatic Function; Complete Time: 16:01 pm1 01/10 15:01 Order name: Lipase; Complete Time: 16:01 pm1 01/10 15:01 Order name: CT Abd/Pelvis - IV Contrast Only; Complete Time: 16:20 pm1 01/10 15:27 Order name: Urine Culture [facility] 01/10 16:37 Order name: CREATININE WHOLE BLOOD; Complete Time: 16:43 [facility] 01/10 14:52 Order name: Urine Test (obtain specimen); Complete Time: 14:53 pm1 01/10 15:01 Order name: IV Saline Lock; Complete Time: 15:56 pm1 01/10 15:01 Order name: Labs collected and sent; Complete Time: 15:56 pm1 Administered Medications: 16:55 Drug: Rocephin 1 grams Route: IV; Rate: calculated rate; Site: left antecubital; vc 16:57 Follow up: IV Status: Completed infusion; IV Intake: 20ml vc Point of Care Testing: Urine : 15:40 hCG Reading: Negative; Control Reading: Positive; jp3 Disposition: 18:33 Co-signature as Attending Physician, Augusta Daniel MD. ma2 Disposition: 01/11/20 16:36 Discharged to Home. Impression: Urinary tract infection, site not specified, Unspecified abdominal pain. - Condition is Stable. - Discharge Instructions: Abdominal Pain, Adult, Urinary Tract Infection, Adult. - Prescriptions for Bactrim DS 800- 160 mg Oral Tablet - take 1 tablet by ORAL route every 12 hours for 10 days; 20 tablet. Tramadol 50 mg Oral Tablet - take 1 tablet by ORAL route every 8 hours as needed; 12 tablet. - Work release form, Medication Reconciliation Form, Thank You Letter, Antibiotic Education, Prescription Opioid Use form. - Follow up: Emergency Department; When: As needed; Reason: Worsening of condition. Follow up: Private Physician; When: 2 - 3 days; Reason: Recheck today's complaints, Continuance of care, Re-evaluation by your physician. - Problem is new. - Symptoms have improved. Signatures: Dispatcher [employer] [facility] Jp Bustos, WOOL BROKER WOOL BROKER pm1 Augusta Daniel MD MD ma2 Niurka Bland RN RN vc Corrections: (The following items were deleted from the chart) 14:53 14:52 Urine Dipstick-Ancillary ordered. pm1 pm1 14:54 14:53 UA MICROSCOPIC+U.LAB.BRZ ordered. [facility] EDCA 17:19 16:36 01/11/2020 16:36 Discharged to Home. Impression: Urinary tract infection, site vc not specified; Unspecified abdominal pain. Condition is Stable. Forms are Medication Reconciliation Form, Thank You Letter, Antibiotic Education, Prescription Opioid Use. Follow up: Emergency Department; When: As needed; Reason: Worsening of condition. Follow up: Private Physician; When: 2 - 3 days; Reason: Recheck today's complaints, Continuance of care, Re-evaluation by your physician. Problem is new. Symptoms have improved. pm1
[2020-01-11] MEDS ORDERED: CEFTRIAXONE/SWI 1gm 1 GM/10 ML SYR ONE (16:58)
[2020-01-11 17:26] VITALS: TEMP 98.4
[2020-01-11 17:29] VITALS: BP 97/75; O2SAT 100
== END 2020-01-11 17:19 | disposition home or self-care (01) ==
LOC: ER 14:07
DX: N39.0 Urinary tract infection, site not specified (principal); Z88.0 Allergy status to penicillin
CPT/HCPCS: 36415; 74177; 80048; 80076; 81003; 81015; 81025; 82565; 83690; 85025; 87086; 87088; 96374; 99284; J0696; Q9967

== ENCOUNTER 2020-07-20 08:59 | Emergency (ER) | payer SELFPAY ==
--- OUTSIDE RECORDS SUMMARY | 2020-07-20 09:16 | XMS REPORT | Continuity of Care Document ---
:[address] [facility] [place] [place] t Address [address] [place] [address] Care Team Providers Name Role Phone Unavailable Unavailable Unavailable Payers Payer Name Policy Type Policy Number Effective Date Expiration Date S ource Problems This patient has no known problems. Allergies, Adverse Reactions, Alerts Allergy Allergy Status Severity Reaction(s) Onset Inactive Treating Comm ents Source Name Type Date Date Clinician No Known DA Active U 2018-0 [facility]ie 07-11 [facility] 00:00: e 00 [facility] Medications This patient has no known medications. Procedures This patient has no known procedures. Results This patient has no known results.
[2020-07-20 09:43] LABS: Urine Blood TRACE (NEG); Urine Glucose NEGATIVE (NEG); Urine Protein NEGATIVE (NEG); Urine Specific Gravity 1.025 (1.005-1.030); Urine pH 5.5 (5.0-7.0)
[2020-07-20 09:52] LABS: Urine Bacteria <20 /HPF (<20); Urine RBC <5 /HPF (NONE SEEN)
--- NOTE | 2020-07-20 09:57 | ER ---
Nurse's Notes [facility] Name: Abby Arenas Age: 30 yrs Sex: Female : 1990 Arrival Date: 07/20/2020 Time: 09:02 Bed Waiting Private MD: Diagnosis: Dysuria Presentation: 07/20 09:14 Chief complaint: Patient states: burning with urination and frequency that began 4 days ss ago. Coronavirus screen: Client denies travel out of the [place] in the last 14 days. Ebola Screen: Patient denies exposure to infectious person. Patient denies travel to an Ebola-affected area in the 21 days before illness onset. Initial Sepsis Screen: Does the patient meet any 2 criteria? No. Patient's initial sepsis screen is negative. Does the patient have a suspected source of infection? Yes: Dysuria/Frequency/Urgency/UTI. Risk Assessment: Do you want to hurt yourself or someone else? Patient reports no desire to harm self or others. Onset of symptoms was July 16, 2020. 09:14 Method Of Arrival: Ambulatory ss 09:14 Acuity: RALF 4 ss Historical: - Allergies: 09:16 PENICILLINS; ss - Home Meds: 09:16 None [Active]; ss - PMHx: 09:16 UTI; ss - PSHx: 09:16 None; ss - Immunization history:: Adult Immunizations unknown. - Social history:: Smoking status: Patient reports the use of cigarette tobacco products, smokes one-half pack cigarettes per day. Screenin:14 Abuse screen: Denies threats or abuse. Denies injuries from another. Nutritional ss screening: No deficits noted. Tuberculosis screening: No symptoms or risk factors identified. Fall Risk None identified. Assessment: 09:14 General: Appears in no apparent distress. comfortable, Behavior is calm, cooperative, ss Denies fever, feeling ill, fatigue, chills. Pain: Complains of pain in pelvis Pain currently is 5 out of 10 on a pain scale. Is continuous. Neuro: Level of Consciousness is awake, alert, obeys commands, Oriented to person, place, time, situation. Respiratory: Airway is patent Respiratory effort is even, unlabored, Respiratory pattern is regular, symmetrical. GI: Abdomen is non-distended, Patient currently denies diarrhea, nausea, vomiting. : Reports burning with urination, urinary frequency, since x 4 days. EENT: Nares are clear. Derm: Skin is intact, is healthy with good turgor, Skin is pink, warm \T\ dry. normal. Musculoskeletal: Circulation, motion, and sensation intact. Range of motion: intact in all extremities, Swelling absent. Vital Signs: 09:14 Pulse 76; Resp 15; Temp 98.1(O); Pulse Ox 98% ; Weight 81.65 kg; Height 5 ft. 5 in. ss (165.10 cm); Pain 5/10; 09:17 BP 107 / 66; ss 09:14 Body Mass Index 29.95 (81.65 kg, 165.10 cm) ss ED Course: 09:02 Patient arrived in ED. ds1 09:03 [facility] Flores [facility] kb 09:03 Matteo Cruz MD is Attending Physician. kb 09:14 Patient has correct armband on for positive identification. ss 09:16 Triage completed. ss 09:16 Arm band placed on right wrist. ss 10:13 No provider procedures requiring assistance completed. Patient did not have IV access ss during this emergency room visit. Administered Medications: No medications were administered Outcome: 09:56 Discharge ordered by . kb 10:13 Discharged to home ambulatory. ss 10:13 Condition: good 10:13 Discharge instructions given to patient, Instructed on discharge instructions, follow up and referral plans. Demonstrated understanding of instructions, follow-up care. 10:14 Patient left the ED. ss Signatures: Nadiya Flores FNP-C FNP-Amy Maurice ds1 Alejandra Whipple, RN RN ss
--- NOTE | 2020-07-20 09:57 | EDPHYS ---
Physician Documentation [facility] Name: Abby Arenas Age: 30 yrs Sex: Female : 1990 Arrival Date: 07/20/2020 Time: 09:02 Bed Waiting Private MD: ED Physician Matteo Cruz HPI: 07/20 09:54 This 30 yrs old Black Female presents to ER via Ambulatory with complaints of Pain With kb Urination. 09:54 The patient has not experienced similar symptoms in the past. The patient has not kb recently seen a physician. 09:54 The patient presents with urinary symptoms, dysuria, frequency. Onset: The kb symptoms/episode began/occurred 4 day(s) ago. Modifying factors: The symptoms are alleviated by nothing, the symptoms are aggravated by urinating. Associated signs and symptoms: Pertinent positives: dysuria, urinary frequency, Pertinent negatives: constipation, cramping, diarrhea, dyspareunia, fever, hematuria, nausea, vaginal bleeding, vaginal discharge, vomiting. Severity of symptoms: At their worst the symptoms were moderate, in the emergency department the symptoms are unchanged. Historical: - Allergies: 09:16 PENICILLINS; ss - Home Meds: 09:16 None [Active]; ss - PMHx: 09:16 UTI; ss - PSHx: 09:16 None; ss - Immunization history:: Adult Immunizations unknown. - Social history:: Smoking status: Patient reports the use of cigarette tobacco products, smokes one-half pack cigarettes per day. ROS: 09:53 Constitutional: Negative for fever, chills, and weight loss, Cardiovascular: Negative kb for chest pain, palpitations, and edema, Respiratory: Negative for shortness of breath, cough, wheezing, and pleuritic chest pain, Abdomen/GI: Negative for abdominal pain, nausea, vomiting, diarrhea, and constipation, MS/Extremity: Negative for injury and deformity, Skin: Negative for injury, rash, and discoloration, Neuro: Negative for headache, weakness, numbness, tingling, and seizure. 09:53 : Positive for urinary symptoms, urinary frequency, burning with urination. Exam: 09:53 Constitutional: This is a well developed, well nourished patient who is awake, alert, kb and in no acute distress. Head/Face: Normocephalic, atraumatic. Chest/axilla: Normal chest wall appearance and motion. Nontender with no deformity. No lesions are appreciated. Cardiovascular: Regular rate and rhythm with a normal S1 and S2. No gallops, murmurs, or rubs. Normal PMI, no JVD. No pulse deficits. Respiratory: Lungs have equal breath sounds bilaterally, clear to auscultation and percussion. No rales, rhonchi or wheezes noted. No increased work of breathing, no retractions or nasal flaring. Abdomen/GI: Soft, non-tender, with normal bowel sounds. No distension or tympany. No guarding or rebound. No evidence of tenderness throughout. Skin: Warm, dry with normal turgor. Normal color with no rashes, no lesions, and no evidence of cellulitis. MS/ Extremity: Pulses equal, no cyanosis. Neurovascular intact. Full, normal range of motion. Neuro: Awake and alert, GCS 15, oriented to person, place, time, and situation. Cranial nerves II-XII grossly intact. Motor strength 5/5 in all extremities. Sensory grossly intact. Cerebellar exam normal. Normal gait. Vital Signs: 09:14 Pulse 76; Resp 15; Temp 98.1(O); Pulse Ox 98% ; Weight 81.65 kg; Height 5 ft. 5 in. ss (165.10 cm); Pain 5/10; 09:17 BP 107 / 66; ss 09:14 Body Mass Index 29.95 (81.65 kg, 165.10 cm) ss MDM: 09:21 Patient medically screened. kb 09:54 Data reviewed: vital signs, nurses notes. Data interpreted: Pulse oximetry: on room air kb is 98 %. Interpretation: normal. 09:55 Counseling: I had a detailed discussion with the patient and/or guardian regarding: the kb historical points, exam findings, and any diagnostic results supporting the discharge/admit diagnosis, lab results, the need for outpatient follow up, a family practitioner, to return to the emergency department if symptoms worsen or persist or if there are any questions or concerns that arise at home. 07/20 09:29 Order name: Urine Microscopic Only; Complete Time: 09:55 kb 07/20 09:30 Order name: Urine Dipstick--Ancillary (enter results); Complete Time: 09:48 kb 07/20 09:29 Order name: Urine Test (obtain specimen) kb 07/20 09:29 Order name: Urine Dipstick-Ancillary (obtain specimen) kb 07/20 09:30 Order name: Urine --Ancillary (enter results); Complete Time: 09:48 kb Administered Medications: No medications were administered Disposition: 07/21 07:23 Co-signature as Attending Physician, Matteo Cruz MD I agree with the assessment and kdr plan of care. Disposition: 07/20/20 09:56 Discharged to Home. Impression: Dysuria. - Condition is Stable. - Discharge Instructions: Dysuria. - Work release form, Medication Reconciliation Form, Thank You Letter, Antibiotic Education, Prescription Opioid Use form. - Follow up: Emergency Department; When: As needed; Reason: Worsening of condition. Follow up: Private Physician; When: 2 - 3 days; Reason: Recheck today's complaints, Continuance of care, Re-evaluation by your physician. Signatures: Dispatcher [employer] EDDC Nadiya Flores, PRACHI-C PRACHI-Matteo Marti MD MD kdr Smirch, Shelby, RN RN ss Corrections: (The following items were deleted from the chart) 07/20 10:14 09:56 07/20/2020 09:56 Discharged to Home. Impression: Dysuria. Condition is Stable. ss Forms are Medication Reconciliation Form, Thank You Letter, Antibiotic Education, Prescription Opioid Use. Follow up: Emergency Department; When: As needed; Reason: Worsening of condition. Follow up: Private Physician; When: 2 - 3 days; Reason: Recheck today's complaints, Continuance of care, Re-evaluation by your physician. kb
[2020-07-20 10:21] VITALS: BP 107/66
[2020-07-20 10:23] VITALS: TEMP 98.1; O2SAT 98
== END 2020-07-20 10:14 | disposition home or self-care (01) ==
LOC: ER 08:59
DX: R30.0 Dysuria (principal); F17.210 Nicotine dependence, cigarettes, uncomplicated
CPT/HCPCS: 81003; 81015; 81025; 99281

== ENCOUNTER 2020-09-18 09:07 | Emergency (ER) | payer SELFPAY ==
--- OUTSIDE RECORDS SUMMARY | 2020-09-18 09:09 | XMS REPORT | Continuity of Care Document ---
:1990 Author Organization [facility] t Address [address] [place] [address] Care Team Providers Name Role Phone Unavailable Unavailable Unavailable Payers Payer Name Policy Type Policy Number Effective Date Expiration Date S ource Problems This patient has no known problems. Allergies, Adverse Reactions, Alerts Allergy Allergy Status Severity Reaction(s) Onset Inactive Treating Comm ents Source Name Type Date Date Clinician No Known DA Active U 2018-0 [facility] Allergie 07-11 [facility] 00:00: e 00 [facility] Medications This patient has no known medications. Procedures This patient has no known procedures. Results This patient has no known results.
--- NOTE | 2020-09-18 09:52 | EDPHYS ---
Physician Documentation [facility] Name: Abby Arenas Age: 30 yrs Sex: Female : 1990 Arrival Date: 09/18/2020 Time: 09:09 Bed 24 Private MD: ED Physician Vincenzo Pena HPI: 09/18 09:48 This 30 yrs old Black Female presents to ER via Ambulatory with complaints of Urinary jmm Problem. 09:48 The patient presents with urinary symptoms. Onset: The symptoms/episode began/occurred jmm gradually, 1 week(s) ago. Modifying factors: The symptoms are alleviated by nothing, the symptoms are aggravated by nothing. Associated signs and symptoms: Pertinent negatives: fever, vaginal discharge, vomiting. Historical: - Allergies: 09:27 PENICILLINS; ss - Home Meds: :27 None [Active]; ss - PMHx: 09:27 UTI; ss - PSHx: 09:27 None; ss - Immunization history:: Adult Immunizations up to date. - Social history:: Smoking status: Patient denies any tobacco usage or history of. ROS: 09:48 Constitutional: Negative for fever, chills, and weight loss, Cardiovascular: Negative jmm for chest pain, palpitations, and edema, Respiratory: Negative for shortness of breath, cough, wheezing, and pleuritic chest pain, Abdomen/GI: Negative for abdominal pain, nausea, vomiting, diarrhea, and constipation. 09:48 : Positive for urinary symptoms. 09:48 All other systems are negative. Exam: 09:48 Constitutional: This is a well developed, well nourished patient who is awake, alert, jmm and in no acute distress. Head/Face: atraumatic. Eyes: EOMI, no conjunctival erythema appreciated ENT: Moist Mucus Membranes Neck: Trachea midline, Supple Chest/axilla: Normal chest wall appearance and motion. Cardiovascular: Regular rate and rhythm. No edema appreciated Respiratory: Normal respirations, no respiratory distress appreciated 09:48 Skin: General appearance color normal MS/ Extremity: Moves all extremities, no obvious deformities appreciated, no edema noted to the lower extremities Neuro: Awake and alert, normal gait Psych: Behavior is normal, Mood is normal, Patient is cooperative and pleasant 09:48 Abdomen/GI: Inspection: abdomen appears normal, Palpation: abdomen is soft and non-tender, in all quadrants. 09:48 Back: CVA tenderness, is absent. Vital Signs: 09:24 BP 112 / 81; Pulse 64; Resp 15; Temp 98.1(TE); Pulse Ox 98% on R/A; Weight 81.65 kg; ss Height 5 ft. 5 in. (165.10 cm); Pain 5/10; 09:24 Body Mass Index 29.95 (81.65 kg, 165.10 cm) ss MDM: 09:49 Data reviewed: vital signs, nurses notes. Counseling: I had a detailed discussion with [facility] the patient and/or guardian regarding: the historical points, exam findings, and any diagnostic results supporting the discharge/admit diagnosis, the need for outpatient follow up, to return to the emergency department if symptoms worsen or persist or if there are any questions or concerns that arise at home. ED course: Patient is alert and non toxic in appearance in the ED. No abdominal pain on palpation, I do not suspect appendicitis. No CVA tenderness. Patient is otherwise given strict return precautions. Patient understood and agrees with the plan of care. . 09:51 Patient medically screened. [facility] 09/18 09:45 Order name: Urine Culture [facility] 09/18 09:59 Order name: Urine Dipstick--Ancillary (enter results) eb 09/18 09:18 Order name: Urine Dipstick-Ancillary (obtain specimen); Complete Time: 09:39 tw4 09/18 09:18 Order name: Urine Test (obtain specimen); Complete Time: 09:39 tw4 09/18 09:59 Order name: Urine --Ancillary (enter results) eb Administered Medications: No medications were administered Disposition: 18:50 Co-signature as Attending Physician, Vincenzo Pena MD I agree with the assessment and tw4 plan of care. Disposition: 09/18/20 09:51 Discharged to Home. Impression: Dysuria. - Condition is Stable. - Discharge Instructions: Dysuria. - Prescriptions for Bactrim DS 800- 160 mg Oral Tablet - take 1 tablet by ORAL route every 12 hours for 7 days; 14 tablet. - Medication Reconciliation Form, Thank You Letter, Antibiotic Education, Prescription Opioid Use form. - Follow up: Private Physician; When: 2 - 3 days; Reason: Recheck today's complaints, Continuance of care, Re-evaluation by your physician. Signatures: Dispatcher [employer] Andrew De Anda PA PA jmm Smirch, Shelby, NILTON RN ss Vincenzo Pena MD MD tw4 Corrections: (The following items were deleted from the chart) 10:38 09:51 09/18/2020 09:51 Discharged to Home. Impression: Dysuria. Condition is Stable. ss Forms are Medication Reconciliation Form, Thank You Letter, Antibiotic Education, Prescription Opioid Use. Follow up: Private Physician; When: 2 - 3 days; Reason: Recheck today's complaints, Continuance of care, Re-evaluation by your physician. cachorro
--- NOTE | 2020-09-18 09:52 | ER ---
Nurse's Notes [facility] Name: Abby Arenas Age: 30 yrs Sex: Female : 1990 Arrival Date: 09/18/2020 Time: 09: Bed 24 Private MD: Diagnosis: Dysuria Presentation: 09/18 09:24 Chief complaint: Patient states: urinary frequency and burning with urination that ss began 4-5 days ago. Coronavirus screen: Client denies travel out of the [place] in the last 14 days. Ebola Screen: Patient denies exposure to infectious person. Patient denies travel to an Ebola-affected area in the 21 days before illness onset. Initial Sepsis Screen: Does the patient meet any 2 criteria? No. Patient's initial sepsis screen is negative. Does the patient have a suspected source of infection? No. Patient's initial sepsis screen is negative. Risk Assessment: Do you want to hurt yourself or someone else? Patient reports no desire to harm self or others. Onset of symptoms was September 14, 2020. :24 Method Of Arrival: Ambulatory ss 09:24 Acuity: RALF 4 ss Historical: - Allergies: 09: PENICILLINS; ss - Home Meds: : None [Active]; ss - PMHx: : UTI; ss - PSHx: : None; ss - Immunization history:: Adult Immunizations up to date. - Social history:: Smoking status: Patient denies any tobacco usage or history of. Screenin:24 Abuse screen: Denies threats or abuse. Denies injuries from another. Nutritional ss screening: No deficits noted. Tuberculosis screening: Never had TB. Fall Risk None identified. Assessment: 09:24 General: Appears in no apparent distress. comfortable, Behavior is calm, cooperative, ss Denies fever, feeling ill, fatigue, chills. Pain: Complains of pain in suprapubic area Pain currently is 5 out of 10 on a pain scale. Quality of pain is described as tender, Is continuous. Neuro: Level of Consciousness is awake, alert, obeys commands, Oriented to person, place, time, situation. Cardiovascular: Pulses are all present. Respiratory: Airway is patent Respiratory effort is even, unlabored, Respiratory pattern is regular, symmetrical. GI: Patient currently denies diarrhea, nausea, vomiting. : Reports burning with urination, urinary frequency. EENT: Nares are clear Oral mucosa is moist. Throat is clear. Derm: Skin is intact, is healthy with good turgor, Skin is dry, Skin is pink, warm \T\ dry. normal. Vital Signs: 09:24 BP 112 / 81; Pulse 64; Resp 15; Temp 98.1(TE); Pulse Ox 98% on R/A; Weight 81.65 kg; Height 5 ft. 5 in. (165.10 cm); Pain 5/10; 09:24 Body Mass Index 29.95 (81.65 kg, 165.10 cm) ED Course: 09:09 Patient arrived in ED. mr 09:24 Patient has correct armband on for positive identification. Bed in low position. Call light in reach. 09:26 Triage completed. 09:27 Arm band placed on right wrist. 09:28 Andrew Felix PA is PHCP. [facility] 09:28 Vincenzo Pena MD is Attending Physician. [facility] 09:38 Urine collected: clean catch specimen, cloudy. [facility] 09:39 Alejandra Whipple, NILTON is Primary Nurse. 09:54 Urine Culture Sent. [facility] 10:32 No provider procedures requiring assistance completed. Patient did not have IV access ss during this emergency room visit. Administered Medications: No medications were administered Outcome: 09:51 Discharge ordered by . [facility] 10:32 Discharged to home ambulatory. 10:32 Condition: good 10:32 Discharge instructions given to patient, Instructed on discharge instructions, follow up and referral plans. medication usage, Demonstrated understanding of instructions, follow-up care, medications, Prescriptions given X 1. 10:38 Patient left the ED. Addendum: 09/21/2020 08:36 Addendum: Culture Results: Positive urine culture. No further action required. Bacteria i w sensitive to prescribed antibiotic. Signatures: Andrew Felix PA PA jmm Rivera, Mary Charisse Rollins RN RN Alejandra Whipple RN RN Lia Phoenix [facility]
[2020-09-18 10:41] VITALS: BP 112/81; TEMP 98.1; O2SAT 98
[2020-09-18 10:58] LABS: Urine Blood 2+ (NEG); Urine Glucose NEGATIVE (NEG); Urine Protein 2+ (NEG)
== END 2020-09-18 10:38 | disposition home or self-care (01) ==
LOC: ER 09:07
DX: R30.0 Dysuria (principal)
CPT/HCPCS: 81003; 81025; 87077; 87086; 87088; 87186; 99283

== ENCOUNTER 2021-04-11 00:03 | Emergency (ER) | payer SELFPAY ==
[2021-04-11 00:40] LABS: Urine Blood Negative (Negative); Urine Glucose Negative (Negative); Urine Protein Negative (Negative); Urine Specific Gravity 1.025 (1.005-1.030)
[2021-04-11 00:56] LABS: Urine Specific Gravity/Preg 1.025 (1.005-1.030)
[2021-04-11 01:52] LABS: Urine Bacteria 20-50 /HPF (<20); Urine Mucus 1+ /HPF (NONE SEEN); Urine Yeast FEW (NONE SEEN)
--- NOTE | 2021-04-11 02:06 | ER ---
Nurse's Notes [facility] Name: Abby Arenas Age: 30 yrs Sex: Female : 1990 Arrival Date: 04/11/2021 Time: 00:06 Bed 18 Private MD: Diagnosis: UTI/ Urinary tract infection, site not specified Presentation: 04/11 00:16 Chief complaint: Patient states: Urinary pain, urine frequency, lower pelvic cramping x lp1 1 week; Denies any vaginal bleeding or discharge. Coronavirus screen: At this time, the client does not indicate any symptoms associated with coronavirus-19. Ebola Screen: No symptoms or risks identified at this time. Initial Sepsis Screen: Does the patient meet any 2 criteria? No. Patient's initial sepsis screen is negative. Does the patient have a suspected source of infection? No. Patient's initial sepsis screen is negative. Risk Assessment: Do you want to hurt yourself or someone else? Patient reports no desire to harm self or others. Onset of symptoms was April 11, 2021. 00:16 Method Of Arrival: Ambulatory lp1 00:16 Acuity: RALF 4 lp1 CLIENT SERVICE REPRESENTATIVE: 00:18 LMP 04/03/2021 lp1 Historical: - Allergies: 00:18 PENICILLINS; lp1 - Home Meds: 00:18 None [Active]; lp1 - PMHx: 00:18 UTI; lp1 - PSHx: 00:18 None; lp1 - Immunization history:: Adult Immunizations up to date. - Social history:: Smoking status: Patient denies any tobacco usage or history of. Screenin:18 Abuse screen: Denies threats or abuse. Denies injuries from another. Nutritional lp1 screening: No deficits noted. Tuberculosis screening: No symptoms or risk factors identified. Fall Risk None identified. Assessment: 00:30 General: Appears in no apparent distress. uncomfortable, slender, well groomed, well bs2 developed, well nourished, Behavior is calm, cooperative, appropriate for age. Pain: Complains of pain in pelvis Pain currently is 3 out of 10 on a pain scale. Neuro: No deficits noted. Cardiovascular: No deficits noted. Respiratory: No deficits noted. GI: No signs and/or symptoms were reported involving the gastrointestinal system. : Reports burning with urination, pain with urination, urgency, urinary frequency, Denies discharge, vaginal bleeding, vaginal itching. EENT: No signs and/or symptoms were reported regarding the EENT system. Derm: No signs and/or symptoms reported regarding the dermatologic system. Musculoskeletal: No signs and/or symptoms reported regarding the musculoskeletal system. Vital Signs: 00:16 BP 116 / 82; Pulse 78; Resp 16; Temp 97.7(TE); Pulse Ox 100% on R/A; Weight 81.65 kg lp1 (R); Height 5 ft. 5 in. (165.10 cm); Pain 8/10; 03:07 BP 112 / 78; Pulse 75; Resp 16; Temp 98.6; Pulse Ox 100% on R/A; Pain 0/10; bs2 00:16 Body Mass Index 29.95 (81.65 kg, 165.10 cm) lp1 ED Course: 00:06 Patient arrived in ED. ja2 00:15 Jose Saavedra MD is Attending Physician. 7 00:17 Triage completed. lp1 00:17 Arm band placed on. lp1 00:30 Patient has correct armband on for positive identification. Bed in low position. Call bs2 light in reach. Door closed. Lights dimmed. Warm blanket given. 00:33 Alannah Howard, NILTON is Primary Nurse. bs2 01:40 Urine Culture Sent. bs2 01:40 Urine Microscopic Only Sent. bs2 02:05 Patrick Elise MD is Referral Physician. 7 03:08 No provider procedures requiring assistance completed. Patient did not have IV access bs2 during this emergency room visit. Administered Medications: 02:03 Drug: Cipro (ciprofloxacin) 500 mg Route: PO; bs2 03:08 Follow up: Response: No adverse reaction bs2 Outcome: 02:05 Discharge ordered by . 7 03:08 Discharged to home ambulatory, with family. bs2 03:08 Condition: stable 03:08 Discharge instructions given to patient, family, Instructed on discharge instructions, medication usage, Demonstrated understanding of instructions, follow-up care, medications, Prescriptions given X 2. 03:09 Patient left the ED. bs2 Signatures: Estefany Barney RN RN 1 Jose Saavedra MD MD 7 Alannah Howard RN RN bs2 Amy Rodgers 2 Corrections: (The following items were deleted from the chart) 03:07 00:30 BP 112 / 78; Pulse 75bpm; Resp 16bpm; Pulse Ox 100% RA; Temp 98.6F; Pain 0/10; bs2bs2
--- NOTE | 2021-04-11 02:06 | EDPHYS ---
Physician Documentation [facility] Name: Abby Arenas Age: 30 yrs Sex: Female : 1990 Arrival Date: 04/11/2021 Time: 00:06 Bed 18 Private MD: ED Physician Jose Saavedra HPI: 04/11 00:50 This 30 yrs old Black Female presents to ER via Ambulatory with complaints of Pain With mh7 Urination, Urinary Frequency. 00:50 The patient presents with urinary symptoms, dysuria, frequency. Onset: The [facility] symptoms/episode began/occurred 1 week(s) ago. Modifying factors: The symptoms are alleviated by nothing, the symptoms are aggravated by urinating. 00:50 Associated signs and symptoms: Pertinent negatives: constipation, cramping, diarrhea, mh7 dyspareunia, fever, hematuria, nausea, vaginal bleeding, vaginal discharge, vomiting. 00:50 Severity of symptoms: At their worst the symptoms were moderate, 3 day(s) ago, in the [facility] emergency department the symptoms are unchanged. The patient has experienced similar episodes in the past, multiple times. PROCUREMENT INTERN: 00:18 LMP 04/03/2021 lp1 Historical: - Allergies: 00:18 PENICILLINS; lp1 - Home Meds: 00:18 None [Active]; lp1 - PMHx: 00:18 UTI; lp1 - PSHx: 00:18 None; lp1 - Immunization history:: Adult Immunizations up to date. - Social history:: Smoking status: Patient denies any tobacco usage or history of. ROS: 00:50 Constitutional: Negative for fever, chills, and weight loss, Eyes: Negative for injury, mh7 pain, redness, and discharge, ENT: Negative for injury, pain, and discharge, Neck: Negative for injury, pain, and swelling, Cardiovascular: Negative for chest pain, palpitations, and edema, Respiratory: Negative for shortness of breath, cough, wheezing, and pleuritic chest pain, Abdomen/GI: Negative for abdominal pain, nausea, vomiting, diarrhea, and constipation, Back: Negative for injury and pain, MS/Extremity: Negative for injury and deformity, Skin: Negative for injury, rash, and discoloration, Neuro: Negative for headache, weakness, numbness, tingling, and seizure, Psych: Negative for depression, anxiety, suicide ideation, homicidal ideation, and hallucinations, Allergy/Immunology: Negative for hives, rash, and allergies, Endocrine: Negative for neck swelling, polydipsia, polyuria, polyphagia, and marked weight changes, Hematologic/Lymphatic: Negative for swollen nodes, abnormal bleeding, and unusual bruising. Exam: 00:50 Constitutional: This is a well developed, well nourished patient who is awake, alert, mh7 and in no acute distress. Head/Face: Normocephalic, atraumatic. Eyes: Pupils equal round and reactive to light, extra-ocular motions intact. Lids and lashes normal. Conjunctiva and sclera are non-icteric and not injected. Cornea within normal limits. Periorbital areas with no swelling, redness, or edema. Neck: Trachea midline, no thyromegaly or masses palpated, and no cervical lymphadenopathy. Supple, full range of motion without nuchal rigidity, or vertebral point tenderness. No Meningismus. Chest/axilla: Normal chest wall appearance and motion. Nontender with no deformity. No lesions are appreciated. Cardiovascular: Regular rate and rhythm with a normal S1 and S2. No gallops, murmurs, or rubs. Normal PMI, no JVD. No pulse deficits. Respiratory: Lungs have equal breath sounds bilaterally, clear to auscultation and percussion. No rales, rhonchi or wheezes noted. No increased work of breathing, no retractions or nasal flaring. Abdomen/GI: Soft, non-tender, with normal bowel sounds. No distension or tympany. No guarding or rebound. No evidence of tenderness throughout. Back: No spinal tenderness. No costovertebral tenderness. Full range of motion. Skin: Warm, dry with normal turgor. Normal color with no rashes, no lesions, and no evidence of cellulitis. MS/ Extremity: Pulses equal, no cyanosis. Neurovascular intact. Full, normal range of motion. Neuro: Awake and alert, GCS 15, oriented to person, place, time, and situation. Cranial nerves II-XII grossly intact. Motor strength 5/5 in all extremities. Sensory grossly intact. Cerebellar exam normal. Normal gait. Psych: Awake, alert, with orientation to person, place and time. Behavior, mood, and affect are within normal limits. Vital Signs: 00:16 BP 116 / 82; Pulse 78; Resp 16; Temp 97.7(TE); Pulse Ox 100% on R/A; Weight 81.65 kg lp1 (R); Height 5 ft. 5 in. (165.10 cm); Pain 8/10; 03:07 BP 112 / 78; Pulse 75; Resp 16; Temp 98.6; Pulse Ox 100% on R/A; Pain 0/10; bs2 00:16 Body Mass Index 29.95 (81.65 kg, 165.10 cm) lp1 MDM: 02:03 Differential diagnosis: kidney stone, urinary tract infection. Data reviewed: vital [facility] signs, nurses notes, old medical records, lab test result(s), urinalysis, bacteruria, UPT:. Counseling: I had a detailed discussion with the patient and/or guardian regarding: the historical points, exam findings, and any diagnostic results supporting the discharge/admit diagnosis, lab results, the need for outpatient follow up, a urologist. Response to treatment: the patient's symptoms have markedly improved after treatment. 02:05 Patient medically screened. [facility] 04/11 00:40 Order name: Urine Dipstick-Ancillary; Complete Time: 00:59 EDMS 04/11 00:47 Order name: Urine --Ancillary (enter results); Complete Time: 00:59 eb 04/11 00:23 Order name: Urine Dipstick-Ancillary (obtain specimen); Complete Time: 00:47 [facility] 04/11 01:00 Order name: Urine Microscopic Only; Complete Time: 02:03 [facility] 04/11 01:00 Order name: Urine Culture [facility] 04/11 00:23 Order name: Urine Test (obtain specimen); Complete Time: 00:47 [facility] Administered Medications: 02:03 Drug: Cipro (ciprofloxacin) 500 mg Route: PO; bs2 03:08 Follow up: Response: No adverse reaction bs2 Disposition Summary: 04/11/21 02:05 Discharge Ordered Location: Home [facility] Problem: an acute exacerbation [facility] Symptoms: have improved [facility] Condition: Stable [facility] Diagnosis - UTI/ Urinary tract infection, site not specified [facility] Followup: [facility] - With: Private Physician - When: 1 - 2 days - Reason: Worsening of condition, Recheck today's complaints, Continuance of care, Re-evaluation by your physician Followup: [facility] - With: Patrick Elise MD - When: 1 - 2 days - Reason: Worsening of condition, Recheck today's complaints Discharge Instructions: - Discharge Summary Sheet [facility] - Urinary Tract Infection, Adult, Nimn-aa-Anoy [facility] Forms: - Medication Reconciliation Form [facility] - Thank You Letter [facility] - Antibiotic Education [facility] - Prescription Opioid Use [facility] Prescriptions: - Pyridium 200 mg Oral Tablet - take 1 tablet by ORAL route every 8 hours for 2 days; 6 tablet; Refills: 0, [facility] Product Selection Permitted - Cipro 500 mg Oral Tablet - take 1 tablet by ORAL route every 12 hours for 10 days; 20 tablet; Refills: 0, [facility] Product Selection Permitted Signatures: Dispatcher [employer] EDEstefany Hedrick, RN RN lp1 Jose Saavedra MD MD 7 Alannah Howard RN RN bs2
[2021-04-11] MEDS ORDERED: CIPROFLOXACIN HCL 500 MG TAB ONE (02:26)
[2021-04-11 03:12] VITALS: O2SAT 100
[2021-04-11 03:14] VITALS: BP 112/78; TEMP 98.6
== END 2021-04-11 03:09 | disposition home or self-care (01) ==
LOC: ER 00:03
DX: N39.0 Urinary tract infection, site not specified (principal); Z88.0 Allergy status to penicillin
CPT/HCPCS: 81003; 81015; 81025; 87077; 87086; 87088; 87186; 99283

== ENCOUNTER 2021-12-18 18:47 | Emergency (ER) | payer SELFPAY ==
--- OUTSIDE RECORDS SUMMARY | 2021-12-18 18:49 | XMS REPORT | Continuity of Care Document ---
:[address] [facility] t Address [address] [place] [address] Care Team Providers Name Role Phone Unavailable Unavailable Unavailable Payers Payer Name Policy Type Policy Number Effective Date Expiration Date S ource Problems This patient has no known problems. Allergies, Adverse Reactions, Alerts Allergy Allergy Status Severity Reaction(s) Onset Inactive Treating Comm ents Source Name Type Date Date Clinician No Known DA Active U 2018-0 [facility] All[facility]ie 07-11 [facility] 00:00: e 00 [facility] Medications This patient has no known medications. Procedures This patient has no known procedures. Results This patient has no known results.
[2021-12-18 19:32] LABS: Urine Blood Trace-intact (Negative); Urine Glucose Negative (Negative); Urine Protein Trace (Negative); Urine Specific Gravity 1.025 (1.005-1.030); Urine pH 6.5 (5.0-7.0)
[2021-12-18 19:40] LABS: Urine Specific Gravity/Preg 1.025 (1.005-1.030)
[2021-12-18 19:59] LABS: Urine Bacteria <20 /HPF (<20); Urine RBC <5 /HPF (NONE SEEN)
--- NOTE | 2021-12-18 20:10 | ER ---
Nurse's Notes [facility] Name: Abby Arenas Age: 31 yrs Sex: Female : 1990 Arrival Date: 12/18/2021 Time: 18:49 Bed Waiting Private MD: Diagnosis: UTI/ Urinary tract infection, site not specified Presentation: 12/18 18:52 Chief complaint: Patient states: I have burning with urination. It started last week. I jb4 think its a UTI. I have had them before. Coronavirus screen: At this time, the client does not indicate any symptoms associated with coronavirus-19. Ebola Screen: No symptoms or risks identified at this time. Initial Sepsis Screen: Does the patient meet any 2 criteria? No. Patient's initial sepsis screen is negative. Does the patient have a suspected source of infection? No. Patient's initial sepsis screen is negative. Risk Assessment: Do you want to hurt yourself or someone else? Patient reports no desire to harm self or others. Onset of symptoms was December 11, 2021. Transition of care: patient was not received from another setting of care. 18:52 Method Of Arrival: Ambulatory jb4 18:52 Acuity: RALF 3 jb4 Historical: - Allergies: 18:53 PENICILLINS; jb4 - Home Meds: 18:53 None [Active]; jb4 - PMHx: 18:53 UTI; jb4 - PSHx: 18:53 None; jb4 - Immunization history:: Adult Immunizations up to date. - Social history:: Smoking status: Patient reports the use of cigarette tobacco products, cigars. Screenin:41 Abuse screen: Denies threats or abuse. Nutritional screening: No deficits noted. jb4 Tuberculosis screening: No symptoms or risk factors identified. Fall Risk None identified. Assessment: 20:41 General: Appears in no apparent distress. comfortable, Behavior is calm, cooperative, jb4 appropriate for age. Pain: Denies pain. Neuro: [place]rano Agitation-Sedation Scale (RASS): 0 - Alert and Calm Level of Consciousness is awake, alert, obeys commands, Oriented to person, place, time, situation. Cardiovascular: Patient's skin is warm and dry. Respiratory: Airway is patent Respiratory effort is even, unlabored, Respiratory pattern is regular, symmetrical. : Reports burning with urination. Derm: Skin is intact, Skin is dry, Skin is normal, Skin temperature is warm. Vital Signs: 18:52 BP 112 / 66; Pulse 86; Resp 16; Temp 98.1; Pulse Ox 99% on R/A; Weight 74.84 kg (R); jb4 Height 5 ft. 5 in. (165.10 cm) (R); Pain 8/10; 18:52 Body Mass Index 27.46 (74.84 kg, 165.10 cm) jb4 ED Course: 18:49 Patient arrived in ED. jj6 18:50 [facility]adi[facility] Flores [facility]C [facility] kb 18:50 Matteo Cruz MD is Attending Physician. kb 18:53 Triage completed. jb4 18:53 Arm band placed on right wrist. jb4 20:41 Patient has correct armband on for positive identification. jb4 20:41 No provider procedures requiring assistance completed. Patient did not have IV access jb4 during this emergency room visit. Administered Medications: No medications were administered Medication: 20:41 VIS not applicable for this client. jb4 Outcome: 20:09 Discharge ordered by . kb 20:41 Discharged to home ambulatory, with friend. jb4 20:41 Condition: stable 20:41 Discharge instructions given to patient, Instructed on discharge instructions, follow up and referral plans. medication usage, Demonstrated understanding of instructions, follow-up care, medications, Prescriptions given X 1. 20:43 Patient left the ED. jb4 Signatures: Nadiya Flores FNP-C FNP-Ckb Bryson, James RN RN jb4 Kendra Gomez jj6 Corrections: (The following items were deleted from the chart) 18:55 18:53 Social history: Smoking status: Patient reports the use of cigarette tobacco jb4 products, denies chronic smoking, but will smoke occasionally, jb4
--- NOTE | 2021-12-18 20:10 | EDPHYS ---
Physician Documentation [facility] Name: Abby Arenas Age: 31 yrs Sex: Female : 1990 Arrival Date: 12/18/2021 Time: 18:49 Bed Waiting Private MD: ED Physician Matteo Cruz HPI: 12/18 21:50 This 31 yrs old Black Female presents to ER via Ambulatory with complaints of Pain With kb Urination, Low Back Pain. 21:50 The patient presents with urinary symptoms, dysuria, frequency. Onset: The kb symptoms/episode began/occurred last week. Modifying factors: The symptoms are alleviated by nothing, the symptoms are aggravated by urinating. Associated signs and symptoms: Pertinent positives: dysuria, urinary frequency. Severity of symptoms: At their worst the symptoms were moderate, in the emergency department the symptoms are unchanged. The patient has experienced similar episodes in the past, a few times. The patient has not recently seen a physician. Pt reports urinary frequency and dysuria that started last week. States she has had UTIs in the past and this feels the same. Historical: - Allergies: 18:53 PENICILLINS; jb4 - Home Meds: 18:53 None [Active]; jb4 - PMHx: 18:53 UTI; jb4 - PSHx: 18:53 None; jb4 - Immunization history:: Adult Immunizations up to date. - Social history:: Smoking status: Patient reports the use of cigarette tobacco products, cigars. ROS: 21:44 Constitutional: Negative for fever, chills, and weight loss. kb 21:44 : Positive for urinary frequency, burning with urination. 21:44 All other systems are negative. Exam: 21:46 Constitutional: This is a well developed, well nourished patient who is awake, alert, kb and in no acute distress. Head/Face: Normocephalic, atraumatic. ENT: Moist Mucous membranes Respiratory: Respirations even and unlabored. No increased work of breathing. Talking in full sentences Abdomen/GI: Soft, non-tender. No distention Skin: Warm, dry with normal turgor. Normal color. MS/ Extremity: Pulses equal, no cyanosis. Neurovascular intact. Full, normal range of motion. Neuro: Awake and alert, GCS 15, oriented to person, place, time, and situation. Moves all extremities. Normal gait. Psych: Awake, alert, with orientation to person, place and time. Behavior, mood, and affect are within normal limits. Vital Signs: 18:52 BP 112 / 66; Pulse 86; Resp 16; Temp 98.1; Pulse Ox 99% on R/A; Weight 74.84 kg (R); jb4 Height 5 ft. 5 in. (165.10 cm) (R); Pain 8/10; 18:52 Body Mass Index 27.46 (74.84 kg, 165.10 cm) jb4 MDM: 18:52 Patient medically screened. kb 21:44 Data reviewed: vital signs, nurses notes. Data interpreted: Pulse oximetry: on room air kb is 99 %. Interpretation: normal. Counseling: I had a detailed discussion with the patient and/or guardian regarding: the historical points, exam findings, and any diagnostic results supporting the discharge/admit diagnosis, lab results, the need for outpatient follow up, a family practitioner, to return to the emergency department if symptoms worsen or persist or if there are any questions or concerns that arise at home. 12/18 18:53 Order name: Urine Microscopic Only; Complete Time: 20:09 kb 12/18 19:33 Order name: Urine Dipstick-Ancillary; Complete Time: 19:43 EDMS 12/18 18:53 Order name: Urine Dipstick-Ancillary (obtain specimen); Complete Time: 19:37 kb 12/18 18:53 Order name: Urine Test (obtain specimen); Complete Time: 19:37 kb 12/18 19:34 Order name: Urine --Ancillary (enter results); Complete Time: 19:43 2 12/18 20:02 Order name: Urine Culture EDMS Administered Medications: No medications were administered Disposition: 12/19 08:12 Co-signature as Attending Physician, Matteo Cruz MD I agree with the assessment and kdr plan of care. Disposition Summary: 12/18/21 20:09 Discharge Ordered Location: Home kb Condition: Stable kb Diagnosis - UTI/ Urinary tract infection, site not specified kb Followup: kb - With: Emergency Department - When: As needed - Reason: Worsening of condition Followup: kb - With: Private Physician - When: 2 - 3 days - Reason: Recheck today's complaints, Continuance of care, Re-evaluation by your physician Discharge Instructions: - Discharge Summary Sheet kb - Urinary Tract Infection, Adult, [id number] kb Forms: - Medication Reconciliation Form kb - Thank You Letter kb - Antibiotic Education kb - Prescription Opioid Use kb Prescriptions: - Macrobid 100 mg Oral Capsule - take 1 capsule by ORAL route every 12 hours for 10 days; 20 capsule; Refills: kb 0, Product Selection Permitted Signatures: Dispatcher [employer] EDKS Nadiya Flores, BATTERY ASSEMBLER-C BATTERY ASSEMBLER-Matteo Marti MD MD kdr Terrell Joyce, RN RN jb4 Corrections: (The following items were deleted from the chart) 12/18 18:55 18:53 Social history: Smoking status: Patient reports the use of cigarette tobacco jb4 products, denies chronic smoking, but will smoke occasionally, jb4
[2021-12-18 20:50] VITALS: BP 112/66; TEMP 98.1; O2SAT 99
== END 2021-12-18 20:43 | disposition home or self-care (01) ==
LOC: ER 18:47
DX: N39.0 Urinary tract infection, site not specified (principal); Z72.0 Tobacco use; Z88.0 Allergy status to penicillin
CPT/HCPCS: 81003; 81015; 81025; 87086; 87088; 99282

== ENCOUNTER 2022-07-14 18:31 | Emergency (ER) | payer SELFPAY ==
--- OUTSIDE RECORDS SUMMARY | 2022-07-14 18:35 | XMS REPORT | Continuity of Care Document ---
:1990 Author Organization [facility] t Address [address] [place] [address] Care Team Providers Name Role Phone Unavailable Unavailable Unavailable Payers Payer Name Policy Type Policy Number Effective Date Expiration Date S ource Problems This patient has no known problems. Allergies, Adverse Reactions, Alerts Allergy Allergy Status Severity Reaction(s) Onset Inactive Treating Comm ents Source Name Type Date Date Clinician No Known DA Active U 2018-0 [facility] Allergie 07-11 [facility] 00:00: e 00 [facility] Medications This patient has no known medications. Procedures This patient has no known procedures. Results This patient has no known results.
--- NOTE | 2022-07-14 19:43 | RAD REPORT ---
EXAM DESCRIPTION: RAD - Finger-Thumb Left - 07/14/2022 7:08 pm CLINICAL HISTORY: Pain COMPARISON: No comparisons FINDINGS: Soft tissue swelling affects the second finger. No fracture seen.
[2022-07-14] MEDS ORDERED: HYDROCODONE/APAP 5/325 MG TAB ONE (21:00)
[2022-07-14] MEDS ORDERED: BUPIVACAINE 0.5% PF 10 ML VIAL ONE (21:00)
[2022-07-14] MEDS ORDERED: LIDOCAINE 1% MPF 5 ML VIAL ONE (21:00)
[2022-07-14] MEDS ORDERED: IBUPROFEN 400 MG TAB ONE (21:01)
--- NOTE | 2022-07-14 21:51 | EDPHYS ---
Physician Documentation [facility] Name: Abby Arenas Age: 32 yrs Sex: Female : 1990 Arrival Date: 07/14/2022 Time: 18:34 Bed 19 Private MD: ED Physician Joselito Brush HPI: 07/14 21:30 This 32 yrs old Black Female presents to ER via Ambulatory with complaints of Finger cp Infection. 21:30 The patient or guardian reports pain, swelling, tenderness. The complaints affect the cp proximal to nail left index finger. 21:30 Context: resulted from possible crush type injury to finger. Onset: The cp symptoms/episode began/occurred 1 week(s) ago. Modifying factors: the symptoms are aggravated by movement. Associated signs and symptoms: The patient has no apparent associated signs or symptoms. Historical: - Allergies: 18:48 PENICILLINS; ll1 - PMHx: 18:48 UTI; ll1 - PSHx: 18:48 None; ll1 - Immunization history:: Client reports having NOT received the Covid vaccine. - Social history:: Smoking status: Patient reports the use of cigarette tobacco products, smokes one-half pack cigarettes per day. ROS: 21:35 MS/extremity: Positive for pain, swelling, tenderness, of the proximal to nail left cp index finger. 21:35 Constitutional: Negative for body aches, chills, fever. cp 21:35 Neuro: Negative for numbness, tingling. 21:35 All other systems are negative. Exam: 21:40 Head/Face: Normocephalic, atraumatic. cp 21:40 Constitutional: The patient appears in no acute distress, alert, awake, non-toxic, well developed, well nourished. 21:40 Chest/axilla: Inspection: normal. 21:40 Cardiovascular: Rate: normal. 21:40 Respiratory: the patient does not display signs of respiratory distress, Respirations: normal, no use of accessory muscles, no retractions, labored breathing, is not present. 21:40 Musculoskeletal/extremity: Extremities: noted in the dorsal aspect of left index finger proximal to nail: pain, swelling, tenderness, abscess, ROM: full active range of motion, in the left index finger, Perfusion: the extremity is normally perfused throughout, the left index finger Sensation intact. Vital Signs: 18:48 BP 126 / 75; Pulse 82; Resp 16; Temp 97.9; Pulse Ox 100% ; Weight 81.65 kg; Height 5 ll1 ft. 6 in. (167.64 cm); Pain 9/10; 21:38 BP 114 / 80; Pulse 64; Resp 20; Pulse Ox 100% ; jj7 22:17 BP 113 / 82; Pulse 70; Resp 17; Pulse Ox 100% ; Pain 0/10; jj7 18:48 Body Mass Index 29.05 (81.65 kg, 167.64 cm) ll1 Procedures: 21:44 I \T\ D: Incision and drainage was performed for an abscess of the proximal nail of left cp index finger Prepped with Betadine, Anesthetized with digital block performed using 5 ccs mixture 1% lidocaine w/o epi and 0.5% marcaine w/o epi. Incised with #11 blade. Drained small amount purulent fluid. bloody fluid. Dressing: sterile 4x4 gauze, the patient tolerated the procedure well. MDM: 19:07 Patient medically screened. cp 21:00 Differential diagnosis: closed fracture, abscess, cellulitis. cp 21:50 Data reviewed: vital signs, nurses notes, radiologic studies, plain films. cp 21:50 Test interpretation: by ED physician or midlevel provider: plain radiologic studies. cp Counseling: I had a detailed discussion with the patient and/or guardian regarding: the historical points, exam findings, and any diagnostic results supporting the discharge/admit diagnosis, radiology results, to return to the emergency department if symptoms worsen or persist or if there are any questions or concerns that arise at home. Response to treatment: the patient's symptoms have markedly improved after treatment, and as a result, I will discharge patient. 07/14 18:48 Order name: XRAY Finger-Thumb Left; Complete Time: 20:45 cp 07/14 19:58 Order name: I\T\D Setup; Complete Time: 21:08 cp Administered Medications: 21:05 Drug: HYDROcodone-acetaminophen 5 mg-325 mg 1 tabs Route: PO; jj7 22:09 Follow up: Response: No adverse reaction; Pain is decreased jj7 21:05 Drug: Ibuprofen 800 mg Route: PO; jj7 22:10 Follow up: Response: Pain is decreased jj7 21:30 Drug: Lidocaine (1 %) 5 ml {Note: admin by lio london} Volume: 5 ml; Route: jj7 Infiltration; 22:10 Follow up: Response: No adverse reaction; Pain is decreased jj7 21:30 Drug: Marcaine (bupivacaine) (0.5 %) 5 ml {Note: admin by lio london} Volume: 10 jj7 ml; Route: Infiltration; 22:10 Follow up: Response: No adverse reaction; Pain is decreased jj7 22:09 Drug: Clindamycin 300 mg Route: PO; jj7 Disposition: 07/15 08:50 Co-signature as Attending Physician, Joselito Brush DO I was immediately available on-site ms3 in the Emergency Department for consultation in the care of the patient. Disposition Summary: 07/14/22 21:51 Discharge Ordered Location: Home cp Problem: new cp Symptoms: have improved cp Condition: Stable cp Diagnosis - Paronychia of Left Index Finger cp Followup: cp - With: Emergency Department - When: 48 Hours - Reason: Worsening of condition Discharge Instructions: - Discharge Summary Sheet cp - Paronychia cp Forms: - Medication Reconciliation Form cp - Thank You Letter cp - Antibiotic Education cp - Prescription Opioid Use cp Prescriptions: - Clindamycin HCl 300 mg Oral Capsule - take 1 capsule by ORAL route every 6 hours for 10 days; 40 capsule; Refills: 0, cp Product Selection Permitted Signatures: Dispatcher [employer] EDMS Lio Elam PA PA cp Obdulia Lobo RN RN ll1 Joselito Brush DO DO ms3 Jamee Manjarrez RN RN jj7 Corrections: (The following items were deleted from the chart) 17:52 07/14 21:05 MS/extremity: Positive for pain, swelling, tenderness, of the proximal to cp nail left index finger, cp
--- NOTE | 2022-07-14 21:51 | ER ---
Nurse's Notes [facility] Name: Abby Arenas Age: 32 yrs Sex: Female : 1990 Arrival Date: 07/14/2022 Time: 18:34 Bed 19 Private MD: Diagnosis: Paronychia of Left Index Finger Presentation: 07/14 18:48 Chief complaint: Patient states: L hand 2nd digit pain and swelling for 1 week. Might ll1 have hit it at work . No fever. Coronavirus screen: Vaccine status: Patient reports being unvaccinated. Client denies travel out of the [place] in the last 14 days. At this time, the client does not indicate any symptoms associated with coronavirus-19. Ebola Screen: Patient denies travel to an Ebola-affected area in the 21 days before illness onset. Initial Sepsis Screen: Does the patient meet any 2 criteria? No. Patient's initial sepsis screen is negative. Does the patient have a suspected source of infection? Yes: Skin breakdown/wound. Risk Assessment: Do you want to hurt yourself or someone else? Patient reports no desire to harm self or others. Onset of symptoms was July 08, 2022. 18:48 Method Of Arrival: Ambulatory ll1 18:48 Acuity: RALF 4 ll1 Historical: - Allergies: 18:48 PENICILLINS; ll1 - PMHx: 18:48 UTI; ll1 - PSHx: 18:48 None; ll1 - Immunization history:: Client reports having NOT received the Covid vaccine. - Social history:: Smoking status: Patient reports the use of cigarette tobacco products, smokes one-half pack cigarettes per day. Screenin:05 [facility] ED Fall Risk Assessment (Adult) History of falling in the last 3 months, jj7 including since admission No falls in past 3 months (0 pts) Confusion or Disorientation No (0 pts) Intoxicated or Sedated No (0 pts) Impaired Gait No (0 pts) Mobility Assist Device Used No (0 pt) Altered Elimination No (0 pt) Score/Fall Risk Level 0 - 2 = Low Risk. Abuse screen: Denies threats or abuse. Nutritional screening: No deficits noted. Tuberculosis screening: No symptoms or risk factors identified. Assessment: 21:05 General: Appears in no apparent distress. uncomfortable, Behavior is calm, cooperative, jj7 appropriate for age. Pain: Complains of pain in dorsal aspect of distal phalanx of left index finger. Derm: Abscess located on dorsal aspect of distal phalanx of left index finger Reports pain that is 8 out of 10 on a pain scale. Vital Signs: 18:48 BP 126 / 75; Pulse 82; Resp 16; Temp 97.9; Pulse Ox 100% ; Weight 81.65 kg; Height 5 ll1 ft. 6 in. (167.64 cm); Pain 9/10; 21:38 BP 114 / 80; Pulse 64; Resp 20; Pulse Ox 100% ; jj7 22:17 BP 113 / 82; Pulse 70; Resp 17; Pulse Ox 100% ; Pain 0/10; jj7 18:48 Body Mass Index 29.05 (81.65 kg, 167.64 cm) ll1 ED Course: 18:34 Patient arrived in ED. rg4 18:34 Lio Elam PA is PHCP. cp 18:34 Joselito Brush DO is Attending Physician. cp 18:48 Arm band placed on. ll1 18:50 Triage completed. ll1 19:10 XRAY Finger-Thumb Left In Process Unspecified. EDMS 20:05 Patient notified of wait time. tw5 20:53 Jamee Manjarrez, RN is Primary Nurse. jj7 21:05 Patient has correct armband on for positive identification. Bed in low position. Call jj7 light in reach. Warm blanket given. 21:05 Assist provider with I \T\ D: Set up I\T\D tray. jj 7 21:38 Assist provider with I \T\ D: Performed by Lio DEMPSEY Patient tolerated well. jj7 22:11 Assist provider with I \T\ D: Dressing with Neosporin and 4X4s, COBAN. jj7 22:11 Patient did not have IV access during this emergency room visit. jj7 Administered Medications: 21:05 Drug: HYDROcodone-acetaminophen 5 mg-325 mg 1 tabs Route: PO; jj7 22:09 Follow up: Response: No adverse reaction; Pain is decreased jj7 21:05 Drug: Ibuprofen 800 mg Route: PO; jj7 22:10 Follow up: Response: Pain is decreased jj7 21:30 Drug: Lidocaine (1 %) 5 ml {Note: admin by lio london} Volume: 5 ml; Route: jj7 Infiltration; 22:10 Follow up: Response: No adverse reaction; Pain is decreased jj7 21:30 Drug: Marcaine (bupivacaine) (0.5 %) 5 ml {Note: admin by lio london} Volume: 10 jj7 ml; Route: Infiltration; 22:10 Follow up: Response: No adverse reaction; Pain is decreased jj7 22:09 Drug: Clindamycin 300 mg Route: PO; jj7 Medication: 21:05 VIS not applicable for this client. jj7 Outcome: 21:51 Discharge ordered by . richard 22:18 Discharged to home ambulatory, with family. jj7 22:18 Condition: improved 22:18 Discharge instructions given to patient, Instructed on discharge instructions, medication usage, Demonstrated understanding of instructions, medications, wound care, Prescriptions given X 1. 22:18 Patient left the ED. jj7 Signatures: Dispatcher [employer] EDMS Lio Elam PA PA cp Garcia, Rubi rg4 Obdulia Lobo, NILTON RN ll1 Macey Segovia tw5 Jamee Manjarrez RN RN jj7 Corrections: (The following items were deleted from the chart) 18:50 18:48 Pulse 82bpm; Resp 16bpm; Pulse Ox 100%; Temp 97.9F; 81.65 kg; Height 5 ft. 6 in.; ll1 BMI: 29.0; Pain 9/10; ll1
[2022-07-14 22:38] VITALS: TEMP 97.9; O2SAT 100
[2022-07-14 22:45] VITALS: BP 113/82
== END 2022-07-14 22:18 | disposition home or self-care (01) ==
LOC: ER 18:31
PROC: 0H9GXZZ Drainage of Left Hand Skin, External Approach (ICD-10-PCS; principal; 2022-07-14)
DX: L03.012 Cellulitis of left finger (principal); F17.210 Nicotine dependence, cigarettes, uncomplicated; Z88.0 Allergy status to penicillin
CPT/HCPCS: 99284; J2001